=== PATIENT | female | born 1945 | race Caucasian/White ===

== ENCOUNTER 2017-12-26 17:23 | Inpatient (IN) | payer OTHER ==
[~2017-12-26] VITALS: Ht 162.6 cm; Wt 64.6 kg
--- NOTE | 2017-12-26 17:47 | ED DYSPNEA/ASTHMA COMPLAINT ---
See Addendum History of Present Illness General Chief Complaint: Dyspnea (COPD, CHF, Other) Stated Complaint: BIBA FOR ACUTE DYSPNEA Source: patient, family, old records, EMS Exam Limitations: no limitations Vital Signs & Intake/Output Vital Signs & Intake/Output Vital Signs Date Time Temp Pulse Resp B/P B/P Pulse O2 O2 Flow FiO2 Mean Ox Delivery Rate 12/26 1912 110 20 94/52 95 Nasal 2.0L Cannula 12/26 1905 97.3 120 24 84/46 12/26 1859 84/46 12/26 1752 97 Nasal 4.0L Cannula 12/26 1735 97.3 120 24 96/60 94 Nasal 2.0L Cannula 12/26 1730 97 Nasal 2.0L Cannula Allergies Coded Allergies: Penicillins (Intermediate, HIVES/RASH/ITCH 12/26/17) Triage Note: BIBA FROM WALK IN WITH C/O CHEST PAIN, MED WITH 2 BABY ASPIRIN AT WALK IN, AND 2 BABY ASPIRIN, AND 1 DUONEB ENROUTE BY EMS. PT ARRIVES TO ED AWAKE, ALERT, ORIENTED, DENIES CHEST PAIN C/O LEFT FLANK AREA PAIN. DR VAZQUEZ AT BEDSIDE FOR EVAL UPON ARRIVAL TO ROOM, EKG IN PROGRESS. Triage Nurses Notes Reviewed? yes HPI: Patient is a 72-year-old female with a long past medical history of COPD, no prior intubations, last steroid use in July 2017, who presented today to urgent care with a suspected COPD exacerbation. When she was evaluated there, she was found to have tachycardia that was concerning for atrial fibrillation versus atrial flutter. EMS was called and the patient was transported to our ED for evaluation. In route to the hospital she was given a nebulizer given her x- ray for wheezing. By the time of her arrival in the ED she was feeling subjectively improved in regards to her dyspnea but her tachycardia continued. She has no cardiac history of which she is aware, however she does note that she has not seen a physician for years. Past History Travel History Traveled to [place] past 21 day No Medical History Any Pertinent Medical History? see below for history Respiratory: COPD Surgical History Surgical History: non-contributory Psychosocial History What is your primary language Lithuanian Family History Hx Contributory? Yes Review of Systems Review of Systems Constitutional: Reports: see HPI. EENTM: Reports: no symptoms. Respiratory: Reports: see HPI, cough, short of breath, wheezing. Denies: orthopnea, stridor. Cardiovascular: Denies: chest pain, edema. GI: Reports: no symptoms. Genitourinary: Reports: no symptoms. Musculoskeletal: Reports: no symptoms. Skin: Reports: no symptoms. Neurological/Psychological: Reports: no symptoms. Hematologic/Endocrine: Reports: no symptoms. Immunologic/Allergic: Reports: no symptoms. All Other Systems: Reviewed and Negative Physical Exam Physical Exam Respiratory: wheezing Comments: HEENT: Inspection of the head reveals a normocephalic cranium with no signs of trauma. Ophtho: Extraocular muscles are intact and pupils are equal and reactive to light bilaterally with no afferent pupillary defect. The sclera are noninjected , and there is no obvious discharge. Neck: The trachea is midline, there is no obvious asymmetry or mass over the thyroid, and there is no midline cervical spine tenderness Respiratory: Diffuse expiratory wheezing in all lung sutton. No shonna hypoxia, but increased work of breathing exists with mild accessory muscle use. Cardiac: Irregular tachycardia without appreciable murmurs on auscultation. No obvious JVD. GI: Examination of the abdomen reveals no significant focal tenderness in any of the four quadrants. There is negative Frazier's sign, negative McBurney's point tenderness, negative [place] sign, negative Arevalo-Cardoza sign, and no signs of peritonitis whatsoever on percussion or deep palpation. The skin is intact with no sign of trauma or infection. : Deferred Neuro: The patient is oriented to person, place, time, and situation, with no obvious focal motor deficits. There were no sensory deficits, and the patient exhibit purposeful movement of all 4 extremities. Cranial nerves II through XII are intact, and gait is normal. Behavioral: Calm and cooperative Dermatologic: Dermatologic examination reveals no diffuse rashes or exanthems, no petechiae, no ecchymoses, and no other signs of erythema or infection. Core Measures ACS in differential dx? Yes CVA/TIA Diagnosis No Sepsis Present: No Sepsis Focused Exam Completed? No Progress Differential Diagnosis: CHF, COPD, pneumonia, pneumothorax, unstable angina Plan of Care: Orders Procedure Date/time Status Heart Healthy Diet 12/27 B Active ED Holding Orders 12/26 1921 Active Admit to inpatient 12/26 1921 Active Code Status 12/26 1921 Active TROPONIN LEVEL 05/07 1734 Complete MAGNESIUM 12/26 173 Complete COMPREHENSIVE METABOLIC PANEL 12/26 173 Complete CBC WITHOUT DIFFERENTIAL 12/26 1733 Active EKG 12/26 172 Active Current Medications Sig/Gisell Start time Last Medication Dose Stop Time Status Admin Sodium Chloride 1,000 ML BOLUS ONE 12/26 1944 AC (Normal Saline 0.9%) 12/27 2043 Azithromycin 500 MG ONCE ONE 12/26 1929 AC (Zithromax) 12/26 2028 Sodium Chloride 250 ML (Normal Saline 0.9%) Laboratory Tests 12/26/17 1753: Anion Gap 9, Estimated GFR > 60, BUN/Creatinine Ratio 33.3 H, Glucose 119 H, Calcium 8.1 L, Magnesium 1.6, Total Bilirubin 0.8, AST 24, ALT 26, Alkaline Phosphatase 82, Troponin I < 0.01, Total Protein 5.3 L, Albumin 2.9 L, Globulin 2.4, Albumin/Globulin Ratio 1.2, CBC w Diff MAN DIFF ORDERED, RBC 4.22, MCV 93.9, MCH 30.7, MCHC 32.7 L, RDW 14.4, MPV 8.1, Gran % 93.0 H, Lymphocytes % 5.5 L, Monocytes % 1.5 L, Eosinophils % 0, Basophils % 0, Absolute Granulocytes 17.4 H, Segmented Neutrophils Pending, Absolute Lymphocytes 1.0 L , Absolute Monocytes 0.3, Absolute Eosinophils 0, Absolute Basophils 0 CXR Impression: left-sided infiltrate obscuring the left heart border suggestive of consolidation Pre-Hospital EKG: A-fib versus a-flutter per EMS Initial ED EKG: Initial ECG performed at 1738 hrs., multifocal atrial tachycardia with rate of 119 bpm. AL, QT, and QTc normal. Nonspecific ST segment changes not diagnostic of steady. T wave inversions in room 3 and aVF. No priors for comparison. Comments: Patient with history of COPD presented today in respiratory distress, mild. Underlying that she had a tachycardic dysrhythmia. Arrival ECG was consistent with multifocal atrial tachycardia. Treatment of the underlying disorder will treat her dysrhythmia, so I initiated therapy with bronchodilators and steroids. We also provided fluids and obtained labs and a chest x-ray. Tachycardia improved and respiratory status did as well. Laboratory studies largely unremarkable except for leukocytosis. Chest x-ray showed left-sided pneumonia. No hospital acquired pneumonia risk factors, thus treated as community-acquired pneumonia and hospitalized for further treatment. Departure Departure Time of Disposition: 1937 Disposition: STILL A PATIENT Condition: Stable Clinical Impression Primary Impression: Community acquired pneumonia Qualifiers: Laterality: left Lung location: unspecified part of lung Qualified Code: J18.9 - Pneumonia, unspecified organism Secondary Impressions: COPD (chronic obstructive pulmonary disease) Qualifiers: COPD type: COPD with acute exacerbation Qualified Code: J44.1 - Chronic obstructive pulmonary disease with (acute) exacerbation Multifocal atrial tachycardia Departure Forms: Customer Survey General Discharge Information Admission Note Spoke With: Princess Sahni MD Documentation of Exam: Documentation of any treatments & extenuating circumstances including Concerns Regarding Discharge (functional status, medication knowledge or non-compliance, living conditions, etc.) that warrant an admission rather than observation: Patient requires full admission hospitalization given the degree of her COPD exacerbation causing likely underlying multifocal atrial tachycardia. Troponin was negative, however the patient will require extended continued therapy, as well as treatment for her pneumonia which has caused significant leukocytosis. I do not feel that outpatient therapy or observation would be appropriate or adequate in her case. Critical Care Note Critical Care Note Critical Care Time: 30-74 min
[2017-12-26 18:27] LABS: ABSOLUTE BASOPHIL COUNT 0 /CUMM (0.0-0.2); ABSOLUTE EOSINOPHIL COUNT 0 /CUMM (0.0-0.7); ABSOLUTE GRANULOCYTE CT 17.4 /CUMM (1.4-6.5); ABSOLUTE MONOCYTE COUNT 0.3 /CUMM (0.10-0.60); BASOPHIL % 0 % (0.0-2.0); EOSINOPHIL % 0 % (0-5); HEMATOCRIT 39.7 % (37-47); MEAN CORPUSCULAR HGB 30.7 PG (27.0-31.0); MEAN CORPUSCULAR HGB CONC 32.7 G/DL (33.0-37.0); MEAN CORPUSCULAR VOLUME 93.9 FL (81.0-99.0); MEAN PLATELET VOLUME 8.1 FL (7.4-10.4); PLATELET COUNT 297 /CUMM (130-400); RBC DISTRIBUTION WIDTH 14.4 % (11.5-14.5); RED BLOOD CELL CT 4.22 /CUMM (4.20-5.40); WHITE BLOOD CELL COUNT 18.7 /CUMM (4.8-10.8)
--- NOTE | 2017-12-26 18:27 | RADIOLOGY REPORT ---
EXAMINATION: XR PORTABLE CHEST CLINICAL INFORMATION: Chest pain, shortness of breath and nausea COMPARISON: 01/10/2007 TECHNIQUE: Portable frontal view of the chest was obtained. FINDINGS: There is hazy opacity of the left mid to lower lung and indistinctness of the left cardiac border. These findings are new compared to 01/10/2017. The borders of the left hilum are suboptimally defined, and there is hilar fullness. Cardiac silhouette is normal in size. No overt pleural effusion or pneumothorax. Bones appear diffusely osteopenic. IMPRESSION: There is abnormal haziness of the left lung that partially obscures the cardiac border. This suggests presence of a lingular infiltrate or atelectasis. There is mild fullness of the left hilum, as well. In an acute setting, pneumonia would be suspected. However, if the patient has more subacute or chronic symptoms, then the possibility of underlying neoplasia would need to be considered. Chest CT with i.v. contrast (and/or PA/LAT chest radiographs) may be needed for further evaluation.
[2017-12-26 22:42] VITALS: BP 90/50
[2017-12-26 23:08] VITALS: BP 112/80
--- NOTE | 2017-12-27 00:15 | History & Physical ---
Magdy JOHNS,Rohit 12/27/17 0015: General Information and HPI MD Statement: I have seen and personally examined ALEXI ALONSO and documented this H&P. The patient is a 72 year old F who presented with a patient stated chief complaint of [chest pain]. Source of Information: patient, old records Exam Limitations: no limitations History of Present Illness: Patient is a 72-year-old female with past medical history of COPD not on oxygen, current 1 pack per day smoker presenting this admission due to chest pain. Patient reports that she has had left-sided breast and flank pain that started 3 days prior to admission. Patient reports over the past week she has had back pain for which she has taken Tylenol and Advil. Patient reports this pain worsens with breathing. Rates the pain as 8 out of 10 in severity. Patient states that she went to urgent care for the pain at which point she was found to be tachycardic with concern of atrial fibrillation/flutter and possible HI and was told to come to the ED. Patient reports that over the past few days she has had a productive cough with thick green phlegm and this morning noticed a small amount of hemoptysis. Patient reports fever, chills, one day of loose watery diarrhea with 4-5 bowel movements, nausea. Patient states that she has been feeling tired and has noticed that she has had a poor appetite and has had difficulty sleeping over the past week. Patient reports shortness of breath which worsens with exertion however also occurs at rest which also started 3 days prior to admission. Patient denies any recent sick contacts, recent travel, bug bites/tick bites. Patient states that she normally goes to urgent care clinic for her healthcare. Last visit was June for a sinus infection. Patient reports her PCP is Dr. Miranda however has not seen him yet. Patient smokes one pack per day (30+ years), denies alcohol or illicit drug use. Patient states that she has an albuterol inhaler which she uses occasionally however over the past one week she has been using it every day. Past medical history: COPD, sinus infection Past surgical history: None No significant family history Allergies: Penicillin- rash/itching Patient in the ED received DuoNeb 1, dexamethasone 10 mg IV 1, ceftriaxone and azithromycin, verapamil 5 mg IV once a 1, IV normal saline bolus 1 Allergies/Medications Allergies: Coded Allergies: Penicillins (Intermediate, HIVES/RASH/ITCH 12/26/17) Home Med list Amoxicillin 500 MG CAPSULE 1 CAP PO TID Pneumonia Aspirin (Ecotrin*) 81 MG TABLET. 1 TAB PO DAILY [facility] Atorvastatin Calcium 20 MG TABLET 1 TAB PO DAILY [facility] Past History Travel History Traveled to [place] past 21 day No Medical History Blood Transfusion Hx: No Neurological: NONE EENT: NONE Cardiovascular: NONE Respiratory: COPD Gastrointestinal: NONE Hepatic: NONE Renal: NONE Musculoskeletal: NONE Psychiatric: NONE Endocrine: NONE Blood Disorders: NONE Cancer(s): NONE EMERGENCY MEDICAL DISPATCHER/Reproductive: NONE Isolation History: Standard Surgical History Surgical History: cholecystectomy Past Family/Social History Psychosocial History Where do you live? Home Services at Home: None Smoking Status: Current Everyday Smoker ETOH Use: denies use Illicit Drug Use: denies illicit drug use Review of Systems Review of Systems Constitutional: Reports: chills, fever, weakness. Cardiovascular: Reports: see HPI. Respiratory: Reports: see HPI. GI: Reports: see HPI. Genitourinary: Reports: no symptoms. Musculoskeletal: Reports: see HPI. Skin: Reports: no symptoms. Neurological/Psychological: Reports: no symptoms. Hematologic/Endocrine: Reports: no symptoms. Immunologic/Allergic: Reports: no symptoms. Exam & Diagnostic Data Last 24 Hrs of Vital Signs/I&O Vital Signs Date Time Temp Pulse Resp B/P B/P Pulse O2 O2 Flow FiO2 Mean Ox Delivery Rate 12/27 0000 Nasal 2.0L Cannula 12/26 2308 98.7 115 24 112/80 95 12/26 2242 97.9 120 20 90/50 94 Nasal 3.0L Cannula 12/26 2205 Nasal 2.0L Cannula 12/26 1912 110 20 94/52 95 Nasal 2.0L Cannula 12/26 1905 97.3 120 24 84/46 12/26 1859 84/46 12/26 1752 97 Nasal 4.0L Cannula 12/26 1735 97.3 120 24 96/60 94 Nasal 2.0L Cannula 12/26 1730 97 Nasal 2.0L Cannula Intake & Output 12/27 0800 12/27 0000 12/26 1600 Intake Total 100 Output Total Balance 100 Intake, IV 100 Patient 138 lb Weight Weight Reported by Patient Measurement Method Physical Exam General Appearance Alert, Oriented X3, Cooperative, Mild Distress Skin No Rashes Skin Temp/Moisture Exam: Warm/Dry Sepsis Skin Exam (color): Normal for Ethnicity HEENT Atraumatic, PERRLA, EOMI, Mucous Membr. moist/pink Lymphatic Cervical nl Cardiovascular Normal S1, Normal S2, No Murmurs, tachycardia Abdomen Normal Bowel Sounds, Soft, No Tenderness Neurological Normal Speech, Strength at 5/5 X4 Ext, Normal Tone, Sensation Intact, Cranial Nerves 3-12 NL Extremities No Clubbing, No Cyanosis, No Edema, Normal Pulses, No Tenderness/ Swelling Vascular Normal Pulses, Pulses Symmetrical Last 24 Hrs of Labs/Harry: Laboratory Tests 12/27/17 0200: Lactic Acid 2.3 H 12/27/17 0040: Urinalysis LIGHT H, Urine Color YEL, Urine Clarity CLEAR, Urine pH 6.0, Ur Specific [place] 1.020, Urine Protein 30 H, Urine Ketones TRACE H, Urine Nitrite NEG, Urine Bilirubin NEG, Urine Urobilinogen 2.0 H, Ur Leukocyte Esterase NEG, Ur Microscopic SEDIMENT EXAMINED, Urine RBC RARE, Urine WBC 1-3 H , Ur Epithelial Cells FEW, Urine Bacteria FEW H, Urine Hemoglobin TRACE-LYSED, Urine Glucose 500 H 12/27/17 0040: Ur Random Creatinine 62.6, Ur Random Sodium 36, Ur Random Potassium 40.5, Fraction Sodium Excret 0.4 12/26/17 1753: Anion Gap 9, Estimated GFR > 60, BUN/Creatinine Ratio 33.3 H, Glucose 119 H, Lactic Acid 2.7 H, Calcium 8.1 L, Phosphorus 3.2, Magnesium 1.6, Total Bilirubin 0.8, AST 24, ALT 26, Alkaline Phosphatase 82, Troponin I < 0.01, Pro-B -Natriuretic Pept 1750 H, Total Protein 5.3 L, Albumin 2.9 L, Globulin 2.4, Albumin/Globulin Ratio 1.2, TSH 3.220, Free T4 1.49, CBC w Diff MAN DIFF ORDERED , RBC 4.22, MCV 93.9, MCH 30.7, MCHC 32.7 L, RDW 14.4, MPV 8.1, Gran % 93.0 H, Lymphocytes % 5.5 L, Monocytes % 1.5 L, Eosinophils % 0, Basophils % 0, Absolute Granulocytes 17.4 H, Segmented Neutrophils 61, Band Neutrophils 32 H, Absolute Lymphocytes 1.0 L, Lymphocytes 6 L, Monocytes 1 L, Absolute Monocytes 0.3, Absolute Eosinophils 0, Absolute Basophils 0, Platelet Estimate VERIFIED BY SMEAR, Normocytic RBCs VERIFIED, Normochromic RBCs VERIFIED, Fld Total RBCs Counted 100 Microbiology 12/28 39 URINE ROUT: Legionella Antigen - COMP 12/28 39 URINE ROUT: Streptococcus pneumoniae Antigen (M - COMP 12/27 0005 NASOPHARYN: Influenza Virus A & B Rapid Smear - COMP 12/26 2345 LOWER RESP: Respiratory Culture - COLB 12/26 2344 LOWER RESP: Gram Stain - COLB 12/27 2019 BLOOD: Blood Culture - RECD 12/27 1999 BLOOD: Blood Culture - RECD Assessment/Plan Assessment: Patient is a 72-year-old female with past medical history of COPD not on oxygen, current 1 pack per day smoker presenting this admission due to chest pain. Patient will be admitted to telemetry for management of the followin. Sepsis secondary to community acquired pneumonia 2. Atypical chest pain rule out ACS, multifocal atrial tachycardia. 3. Lactic acidosis 4. COPD, tobacco use Plan: Admitted to telemetry with continuous telemetry monitoring Follow-up sputum cultures and blood cultures Follow-up Legionella and strep urine antigen Trend lactic acid TRC/DuoNeb treatments as needed Oxygen supplementation as needed Continue IV ceftriaxone and azithromycin Cardiology consult in a.m. Serial EKG and troponin Nicotine patch DVT prophylaxis: Lovenox Diet: Regular diet Code: DNR/DNI As Ranked By This Provider Problem List: 1. Community acquired pneumonia Qualifiers Laterality: left Lung location: unspecified part of lung Qualified Code: J18.9 - Pneumonia, unspecified organism 2. Multifocal atrial tachycardia 3. COPD (chronic obstructive pulmonary disease) Qualifiers COPD type: COPD with acute exacerbation Qualified Code: J44.1 - Chronic obstructive pulmonary disease with (acute) exacerbation Core Measures/Misc (05/08) Acute Coronary Syndrome ACS Diagnosis: No Congestive Heart Failure Congestive Heart Failure Diagnosis No Cerebrovascular Accident CVA/TIA Diagnosis: No VTE (View Protocol) VTE Risk Factors Age>40 No Mechanical VTE Prophylaxis d/t N/A MechProphylax Ordered No VTE Pharm Prophylaxis d/t NA PharmProphylax ordered Sepsis (View protocol) Sepsis Present: Yes Glenn Luque 12/27/17 0259: Resident Review Statement Resident Statement: examined this patient, discussed with international travel consultant, agreed with international travel consultant, discussed with family, reviewed EMR data (avail), discussed with nursing , discussed with case mgmt, reviewed images, amended to note Other Findings: This is a 72-year-old female with past medical history of COPD not on oxygen. She presented to the emergency department with a chief complaint of chest pain and difficulty breathing. she has had left-sided breast and flank pain that started 3 days ago and Patient reports this pain worsens with breathing. Patient reports over the past week she has had back pain for which she has taken Tylenol and Advil. she went to urgent care for the pain at which point she was found to be tachycardic with concern of possible HI and was told to come to the emergency department for further evaluation and assessment. She also report reports fever, chills, one day of loose watery diarrhea, and productive cough with thick green phlegm and this morning noticed a small amount of hemoptysis. In the emergency department she received IV azithromycin and IV ceftriaxone antiemetic from IV Decadron, also she received verapamil 5 mg IV. Patient wants hypotensive on presentation she received 1 L of normal saline bolus. In the chest x-ray showed a sign on the left lung opacification that could represent a pneumonia. Physical examination, lab and imaging as above. Problem list: -Community-acquired pneumonia -Acute chest pain -Tachycardia -Leukocytosis/lactic acidosis -Hyponatremia/hypokalemia/hypomagnesemia. Plan: -Admit patient to telemetry floor -Vitals every shift -Continue IV azithromycin and ceftriaxone -Obtain sputum culture, strep and Legionella urine antigen, rapid flu -Follow blood culture, trend lactic acid -Obtain TSH, free T4, phosphorus, lipid panel, HA1c -TRC and nebs as needed -Serial troponin and EKG -Cardiology consultation in a.m. -Obtain urine analysis and electrolytes -Replete magnesium, potassium -Patient will need a chest CAT scan as an outpatient for further evaluation. -Nicotine patch -Pain pathway -DVT prophylaxis subcutaneous Lovenox -DNI DNR Princess Sahni 12/27/17 0647: Attending MD Review Statement Attending Statement Attending MD Statement: examined this patient, discuss w/resident/PA/CONSULTING PROJECT DIRECTOR, agreed w/resident/PA/CONSULTING PROJECT DIRECTOR, reviewed EMR data (avail), reviewed images, amended to note Attending Assessment/Plan: CC: Left-sided chest pain and back pain PMH: Suspected COPD, current smoker Patient went to walk-in clinic for pain in left lateral side of chest and flank, worse with deep breathing, 7/10 in intensity, non-radiating, no aggravating or relieving factors, associated with productive cough since last 3 days. Her sputum was initially greenish yellow but then had blood-tinged this morning, endorses shortness of breath. Patient denies any fever, chills, abdominal pain, urinary frequency, burning, diarrhea, palpitations, dizziness, lightheadedness. Patient had nausea but did not have vomiting. Denies any choking episode, denies sick contacts. She has decreased appetite. Vitals: Temp pressure 97.3, pulse 120, RR 24, blood pressure 96/90 on arrival improved with 112/80 on IV hydration, saturating 97% on 3 L nasal cannula On exam: A O 3, cooperative, no acute distress, neck supple, JVD normal, no lymphadenopathy, mucosa moist, no focal neurological deficit, no dependent edema , no obvious skin rashes or inflammation CVS: S1-S2, RRR. RS: Diffuse wheezing bilaterally and crackles on left lower lobe. Abdomen: Soft, NT, ND, bowel sounds present. CXR: There is abnormal haziness of the left lung that partially obscures the cardiac border. This suggests presence of a lingular infiltrate or atelectasis. There is mild fullness of the left hilum, as well. In an acute setting, pneumonia would be suspected. However, if the patient has more subacute or chronic symptoms, then the possibility of underlying neoplasia would need to be considered. Chest CT with i.v. contrast (and/or PA/LAT chest radiographs) may be needed for further evaluation. Assessment and plan 72 year old female with possible COPD, current smoker presented in ER with productive cough, shortness of breath, left-sided chest pain. She appears in mild respiratory discomfort, wheezing on all lung sutton and crackles on left base on auscultation. She has significant leukocytosis with 32 bands. Chest x- ray confirms pneumonia. Given her extensive smoking history and left-sided chest pain ACS should be ruled out. Patient was transiently hypotensive in ER responded to fluids. Patient states that her blood pressure usually runs low. ECG shows sinus tachycardia with multiple PACs. + Community-acquired pneumonia + Possible COPD exacerbation secondary to pneumonia + Atypical left-sided Chest pain rule out ACS - Admit to telemetry - Try to wean off oxygen - IV azithromycin and ceftriaxone - Check urine strep and Legionella - Sputum culture, blood culture - Trend lactate - Continue IV hydration - Serial troponin ECGs - TRC nebulization with albuterol and ipratropium scheduled and when necessary - Mucinex scheduled twice a day - Continue rest of the home medications - Adequate pain control - DVT prophylaxis
--- NOTE | 2017-12-27 06:49 | Admission Certification ---
Admission Certification Certification Statement - As attending physician, I certify that at the time of - admission, based on clinical presentation, severity of - symptoms, need for further diagnostic testing and - therapeutic interventions, and risk of adverse outcomes - without in-hospital treatment, in my clinical assessment, - this patient requires an acute hospital stay for a minimum - of two nights or longer. I have also considered psychsocial - factors such as support system, advanced age, financial - issues, cognitive issues, and failed out-patient treatments, - past re-admission history, safety of patient, and lack of - compliance as applicable. Specific rationale supporting this admission is: Pneumonia
[2017-12-27 07:18] VITALS: BP 110/62
[2017-12-27 07:57] LABS: ABSOLUTE BASOPHIL COUNT 0 /CUMM (0.0-0.2); ABSOLUTE EOSINOPHIL COUNT 0 /CUMM (0.0-0.7); ABSOLUTE LYMPH COUNT 0.6 /CUMM (1.2-3.4); ABSOLUTE MONOCYTE COUNT 0.2 /CUMM (0.10-0.60); BASOPHIL % 0 % (0.0-2.0); EOSINOPHIL % 0 % (0-5); GRANULOCYTE % 95.6 % (42.2-75.2); MEAN CORPUSCULAR HGB 31.1 PG (27.0-31.0); MEAN CORPUSCULAR HGB CONC 33.1 G/DL (33.0-37.0); MEAN PLATELET VOLUME 8.9 FL (7.4-10.4); PLATELET COUNT 285 /CUMM (130-400); RED BLOOD CELL CT 4.04 /CUMM (4.20-5.40); WHITE BLOOD CELL COUNT 18.8 /CUMM (4.8-10.8)
--- NOTE | 2017-12-27 11:44 | PN- Att Addend ---
See Addendum Attending Addendum Attending Brief Note 72 year old female with possible COPD, Chest x-ray admitted with pneumonia. Serial cardiac enzymes negative. Blood cultures growing gram positive cocci. labs and imaging noted. PE unremarakble except few adventitious sounds on left side. 1 Community-acquired pneumonia 2 Possible COPD exacerbation secondary to pneumonia 3 Atypical left-sided Chest pain pleuritic - continue oxygen supplementation - IV azithromycin, ceftriaxone, obtain CT chest with contrast for plueritic chest pain. - Continue IV hydration - Serial troponin ECGs negative - Continue rest of the home medications - Adequate pain control - DVT prophylaxis Continue rest of care as per admitting physician Admission Lab Results I reviewed the following labs: Laboratory Tests 12/27 12/27 0614 0200 Chemistry Sodium (137 - 145 mmol/L) 139 Potassium (3.5 - 5.1 mmol/L) 4.7 Chloride (98 - 107 mmol/L) 106 Carbon Dioxide (22 - 30 mmol/L) 23 Anion Gap (5 - 16) 10 BUN (7 - 17 mg/dL) 21 H Creatinine (0.5 - 1.0 mg/dL) 0.6 Estimated GFR (>60 ml/min) > 60 BUN/Creatinine Ratio (7 - 25 %) 35.0 H Lactic Acid (0.7 - 2.1 mmol/L) 1.3 2.3 H Troponin I (< 0.11 ng/ml) < 0.01 Triglycerides (<150 mg/dL) 160 H Cholesterol (<200 MG/DL) 119 LDL Cholesterol, Calc (65 - 129 mg/dL) 63 L HDL Cholesterol (40 - 60 mg/dL) 24 L Cholesterol/HDL Ratio (0.00 - 4.23 %) 5 H Hematology CBC w Diff MAN DIFF ORDERED WBC (4.8 - 10.8 /CUMM) 18.8 H RBC (4.20 - 5.40 /CUMM) 4.04 L Hgb (12.0 - 16.0 G/DL) 12.6 Hct (37 - 47 %) 38.0 MCV (81.0 - 99.0 FL) 94.0 MCH (27.0 - 31.0 PG) 31.1 H MCHC (33.0 - 37.0 G/DL) 33.1 RDW (11.5 - 14.5 %) 14.0 Plt Count (130 - 400 /CUMM) 285 MPV (7.4 - 10.4 FL) 8.9 Gran % (42.2 - 75.2 %) 95.6 H Lymphocytes % (20.5 - 51.1 %) 3.4 L Monocytes % (1.7 - 9.3 %) 1.0 L Eosinophils % (0 - 5 %) 0 Basophils % (0.0 - 2.0 %) 0 Absolute Granulocytes (1.4 - 6.5 /CUMM) 18.0 H Segmented Neutrophils (42.2 - 75.2 %) 76 H Band Neutrophils (0.0 - 5.0 %) 21 H Absolute Lymphocytes (1.2 - 3.4 /CUMM) 0.6 L Lymphocytes (20.5 - 51.1 %) 2 L Monocytes (1.7 - 9.3 %) 1 L Absolute Monocytes (0.10 - 0.60 /CUMM) 0.2 Absolute Eosinophils (0.0 - 0.7 /CUMM) 0 Absolute Basophils (0.0 - 0.2 /CUMM) 0 Platelet Estimate (ADEQUATE) VERIFIED BY SMEAR Anisocytosis 1+ 12/27 12/27 0040 0040 Urines Urinalysis LIGHT H Urine Color (YEL,AMB,STR) YEL Urine Clarity (CLEAR) CLEAR Urine pH (5.0 - 8.0) 6.0 Ur Specific [place] (1.001 - 1.035) 1.020 Urine Protein (NEG,<30 MG/DL) 30 H Urine Ketones (NEG) TRACE H Urine Nitrite (NEG) NEG Urine Bilirubin (NEG) NEG Urine Urobilinogen (0.1 - 1.0 EU/dl) 2.0 H Ur Leukocyte Esterase (NEG) NEG Ur Microscopic SEDIMENT EXAMINED Urine RBC (0 - 5 /HPF) RARE Urine WBC (0 - 2 /HPF) 1-3 H Ur Epithelial Cells (NONE,FEW) FEW Urine Bacteria (NEG/NONE) FEW H Urine Hemoglobin (NEG) TRACE-LYSED Ur Random Creatinine (mg/dL) 62.6 Ur Random Sodium (30 - 90 mmol/L) 36 Ur Random Potassium (mmol/L) 40.5 Fraction Sodium Excret (<1% %) 0.4 Urine Glucose (N MG/DL) 500 H 12/26 1753 Chemistry Sodium (137 - 145 mmol/L) 135 L Potassium (3.5 - 5.1 mmol/L) 3.5 Chloride (98 - 107 mmol/L) 100 Carbon Dioxide (22 - 30 mmol/L) 26 Anion Gap (5 - 16) 9 BUN (7 - 17 mg/dL) 30 H Creatinine (0.5 - 1.0 mg/dL) 0.9 Estimated GFR (>60 ml/min) > 60 BUN/Creatinine Ratio (7 - 25 %) 33.3 H Glucose (65 - 99 mg/dL) 119 H Hemoglobin A1c (4.2 - 5.8 %) 6.7 H Lactic Acid (0.7 - 2.1 mmol/L) 2.7 H Calcium (8.4 - 10.2 mg/dL) 8.1 L Phosphorus (2.5 - 4.5 mg/dL) 3.2 Magnesium (1.6 - 2.3 mg/dL) 1.6 Total Bilirubin (0.2 - 1.3 mg/dL) 0.8 AST (14 - 36 U/L) 24 ALT (9 - 52 U/L) 26 Alkaline Phosphatase (<127 U/L) 82 Troponin I (< 0.11 ng/ml) < 0.01 Gcy-H-Ndatkyrjite Pept (<125 pg/mL) 1750 H Total Protein (6.3 - 8.2 g/dL) 5.3 L Albumin (3.5 - 5.0 g/dL) 2.9 L Globulin (1.9 - 4.2 gm/dL) 2.4 Albumin/Globulin Ratio (1.1 - 2.2 %) 1.2 TSH (0.270 - 4.200 uIU/mL) 3.220 Free T4 (0.78 - 2.44 ng/dL) 1.49 Hematology CBC w Diff MAN DIFF ORDERED WBC (4.8 - 10.8 /CUMM) 18.7 H RBC (4.20 - 5.40 /CUMM) 4.22 Hgb (12.0 - 16.0 G/DL) 13.0 Hct (37 - 47 %) 39.7 MCV (81.0 - 99.0 FL) 93.9 MCH (27.0 - 31.0 PG) 30.7 MCHC (33.0 - 37.0 G/DL) 32.7 L RDW (11.5 - 14.5 %) 14.4 Plt Count (130 - 400 /CUMM) 297 MPV (7.4 - 10.4 FL) 8.1 Gran % (42.2 - 75.2 %) 93.0 H Lymphocytes % (20.5 - 51.1 %) 5.5 L Monocytes % (1.7 - 9.3 %) 1.5 L Eosinophils % (0 - 5 %) 0 Basophils % (0.0 - 2.0 %) 0 Absolute Granulocytes (1.4 - 6.5 /CUMM) 17.4 H Segmented Neutrophils (42.2 - 75.2 %) 61 Band Neutrophils (0.0 - 5.0 %) 32 H Absolute Lymphocytes (1.2 - 3.4 /CUMM) 1.0 L Lymphocytes (20.5 - 51.1 %) 6 L Monocytes (1.7 - 9.3 %) 1 L Absolute Monocytes (0.10 - 0.60 /CUMM) 0.3 Absolute Eosinophils (0.0 - 0.7 /CUMM) 0 Absolute Basophils (0.0 - 0.2 /CUMM) 0 Platelet Estimate (ADEQUATE) VERIFIED BY SMEAR Normocytic RBCs VERIFIED Normochromic RBCs VERIFIED Other Body Source Fld Total RBCs Counted (%) 100 Admission Meds I reviewed the following Meds: Current Medications Sig/Gisell Start time Last Medication Dose Stop Time Status Admin Acetaminophen 650 MG Q6P PRN 12/26 2344 AC (Tylenol) Albuterol Sulfate 3 ML BID 12/27 1034 AC 12/27 (Proventil) 1036 Albuterol Sulfate 2 PUF Q4 PRN 12/26 2344 AC (Ventolin) Azithromycin 500 MG DAILY 12/27 09 AC 12/27 (Zithromax) 0802 Sodium Chloride 250 ML (Normal Saline 0.9%) Ceftriaxone Sodium 1,000 MG 1700 12/27 1700 AC (Rocephin) Enoxaparin Sodium 40 MG DAILY 12/27 09 AC 12/27 (Lovenox) 0802 Hydrocodone Bitart/ 1 TAB Q6P PRN 12/26 2344 AC 12/27 Acetaminophen 0813 (Vicodin) Ipratropium [place] 2.5 ML BID 12/27 1035 AC 12/27 (Atrovent) 1036 Magnesium Oxide 400 MG BID 12/26 2344 AC 12/27 (Mag-Ox) 12/27 210 0801 Nicotine 21 MG DAILY 12/26 2344 AC 12/27 (Nicoderm) 0130 Sodium Chloride 1,000 ML .Q10H 12/26 2345 AC 12/27 (Normal Saline 0.9%) 0034
--- NOTE | 2017-12-27 12:15 | CT SCAN REPORT ---
EXAMINATION: CT CHEST WITH CONTRAST CLINICAL INFORMATION: Shortness of breath. COPD. Presumptive diagnosis of pneumonia, pleural effusion. COMPARISON: Chest x-ray dated 12/26/2017 and 01/10/2007. TECHNIQUE: Multidetector volumetric CT imaging of the chest was obtained after the administration of 90 mL of intravenous Optiray 320. Sagittal and coronal reformations were obtained. DLP: 169.20 mGy-cm. FINDINGS: LUNGS: There is moderate centrilobular and mild paraseptal emphysema. Biapical irregular pleural-based reticular nodular opacities are seen, consistent with scarring. A few scattered nonspecific 3 to 4 mm solid noncalcified irregularly marginated nodular densities are seen in the lungs, including in the left upper lobe (series 4, image 109, 150) and left lower lobe (series 4, image 387). Corresponding to the chest x-ray findings, there is dense consolidation with air bronchograms seen in the lingula and anterior segment of the left upper lobe. No evidence of central obstructing mass or endobronchial lesion is seen. No focal lung nodule or mass. No effusion or pneumothorax. Central airways diffusely thickened and patent. Mild peribronchial thickening is seen in the right middle lobe (series 4, image 251) patchy peripheral subsegmental atelectasis is seen in the lateral segment of the right middle lobe (series 4, image 288). PLEURA: There is no pleural effusion. No pleural mass or thickening. LYMPHATIC STRUCTURES: Multiple mediastinal lymph nodes are seen, largest of which is in the prevascular space, measuring 0.8 cm in short axis. No hilar or axillary adenopathy or free fluid collection. CARDIOVASCULAR STRUCTURES: Aortic and heart size normal. Moderate atherosclerotic calcifications of the aorta and severe coronary artery calcifications. No pericardial effusion. UPPER ABDOMEN: There is some fullness at the GE junction, suggestive of a small hiatal hernia. Postcholecystectomy maninder are seen in place. Diffuse atrophy of the included portions of the pancreas is noted. Solid organs in the upper abdomen to the extent included are otherwise unremarkable. OSSEOUS STRUCTURES: Diffuse osteopenia. Moderate degenerative disc disease seen throughout the mid thoracic spine with disc space narrowing and vertebral spondylosis including prominent posterior disc osteophyte complex indenting the thecal sac and causing mild spinal stenosis at the T6-T7 level. Mild loss in height of the T8 vertebral body is seen. No suspicious focal findings. IMPRESSION: 1. Dense consolidation is seen in the lingula and anterior segment of the left upper lobe, consistent with pneumonia. No central obstructing mass or endobronchial lesion is seen. 2. Moderate emphysema with a few nonspecific scattered solid micronodules in the lungs. Given the patient's high-risk status, optional CT scan follow-up in 12 months is recommended. 3. A few reactive lymph nodes are seen in the mediastinum without suspicious adenopathy. 4. Severe coronary artery calcifications. 5. Other incidental findings include small hiatal hernia, post cholecystectomy maninder, atrophic pancreas, osteopenia and moderate degenerative disc disease in the thoracic spine.
[2017-12-27 14:37] VITALS: BP 100/60
--- NOTE | 2017-12-27 15:58 | Cons- Cardiology ---
General Information and HPI Consulting Request Date of Consult: 12/27/17 Requested By: Johanne JOHNS,Nela History of Present Illness: The patient is a pleasant 72-year-old female with history of COPD who presents with left-sided chest and back pain which has been occurring for 3 days. The pain was an 8 out of 10 in severity. She presented to urgent care where she was found to be tachycardic with concern for arrhythmia, and she was advised to go to the emergency department. EKG in the emergency department revealed multifocal atrial tachycardia and sinus rhythm. She complains of a productive cough with greenish sputum for the past few days. She notes fever and chills. No syncope. No orthopnea. No lightheadedness or dizziness. No nausea or vomiting. Allergies/Medications Allergies: Coded Allergies: Penicillins (Intermediate, HIVES/RASH/ITCH 12/26/17) Current Medications: Current Medications Sig/Gisell Start time Last Medication Dose Route Stop Time Status Admin Acetaminophen 650 MG Q6P PRN 12/26 234 AC PO Albuterol Sulfate 3 ML BID 12/27 1034 AC 12/27 INH 2059 Albuterol Sulfate 2 PUF Q4 PRN 12/26 234 AC INH Azithromycin 500 MG DAILY 12/27 0900 DC 12/27 Sodium Chloride 250 ML IV 0802 Ceftriaxone Sodium 1,000 MG 1700 12/27 1700 AC 12/27 IV 1618 Enoxaparin Sodium 40 MG DAILY 12/27 0900 AC 12/27 SC 0802 Hydrocodone Bitart/ 1 TAB Q6P PRN 12/26 2345 AC 12/27 Acetaminophen PO 2133 Ipratropium [place] 2.5 ML BID 12/27 1035 AC 12/27 INH 2059 Magnesium Oxide 400 MG BID 12/26 2345 DC 12/27 PO 12/27 2101 2132 Melatonin 5 MG AT BEDTIME 12/27 2130 AC 12/27 PO 2132 Nicotine 21 MG 2100 12/27 2200 AC TOP Nicotine 21 MG DAILY 12/26 234 TX 12/27 TOP 2134 Patient Medication 1 ED ONE ONE 12/27 1745 TX Teaching ED 12/27 1746 Potassium Chloride 40 MEQ .STK-MED ONE 12/27 0120 DC PO 12/27 0121 Sodium Chloride 1,000 ML .Q10H 12/26 2345 12/27 IV 1619 Past History Travel History Traveled to [place] past 21 day No Medical History Blood Transfusion Hx: No Neurological: NONE EENT: NONE Cardiovascular: NONE Respiratory: COPD Gastrointestinal: NONE Hepatic: NONE Renal: NONE Musculoskeletal: NONE Psychiatric: NONE Endocrine: NONE Blood Disorders: NONE Cancer(s): NONE POWER LINEWORKER/Reproductive: NONE Surgical History Surgical History: cholecystectomy Family History Relations & Conditions If Any: MOTHER Heart attack Psychosocial History Where Do You Live? Home Services at Home: None Smoking Status: Current Everyday Smoker ETOH Use: denies use Illicit Drug Use: denies illicit drug use Exam & Diagnostic Data Vital Signs and I&O Vital Signs Date Time Temp Pulse Resp B/P B/P Pulse O2 O2 Flow FiO2 Mean Ox Delivery Rate 12/27 2226 Nasal 1.0L Cannula 12/27 2207 98.4 109 18 96/64 96 12/27 2105 94 Nasal 1.0L Cannula 12/27 1437 98.1 109 18 100/60 97 Nasal 1.0L Cannula 12/27 1041 Nasal 1.0L Cannula 12/27 0800 Nasal 2.0L Cannula 12/27 0718 97.6 112 20 110/62 92 Nasal Cannula Intake & Output 12/28 0800 / 0000 / 1600 / 0800 12/27 0000 12/26 1600 Intake Total 1040 1400 720 100 Output Total Balance 1040 1400 720 100 Intake, IV 800 800 600 100 Intake, Oral 240 600 120 Number 2 Bowel Movements Patient 141 lb 138 lb Weight Weight Reported by Patient Measurement Method Physical Exam: Gen: The patient is in no acute distress HEENT: Normal nose, ears, and oropharynx. Pupils equal bilaterally. Conjunctiva normal. Neck: Supple with no JVD, no masses, and no thyromegaly Lungs: Clear to auscultation with normal respiratory effort Heart: RRR, S1, S2, no murmurs. No peripheral edema, 2+ pulses in the lower extremities bilaterally Abdomen: Soft, nontender, no masses. No hepatomegaly. No splenomegaly Extremities: No clubbing or cyanosis. Normal muscle strength in the upper and lower extremities Skin: Normal skin turgor with no skin ulcers or lesions noted. Neuro: Cranial nerves intact. Sensation intact Psych: Alert and oriented x 3 with appropriate affect Labs/Harry Results: Laboratory Tests 12/27 12/27 0614 0200 Chemistry Sodium (137 - 145 mmol/L) 139 Potassium (3.5 - 5.1 mmol/L) 4.7 Chloride (98 - 107 mmol/L) 106 Carbon Dioxide (22 - 30 mmol/L) 23 Anion Gap (5 - 16) 10 BUN (7 - 17 mg/dL) 21 H Creatinine (0.5 - 1.0 mg/dL) 0.6 Estimated GFR (>60 ml/min) > 60 BUN/Creatinine Ratio (7 - 25 %) 35.0 H Lactic Acid (0.7 - 2.1 mmol/L) 1.3 2.3 H Troponin I (< 0.11 ng/ml) < 0.01 Triglycerides (<150 mg/dL) 160 H Cholesterol (<200 MG/DL) 119 LDL Cholesterol, Calc (65 - 129 mg/dL) 63 L HDL Cholesterol (40 - 60 mg/dL) 24 L Cholesterol/HDL Ratio (0.00 - 4.23 %) 5 H Hematology CBC w Diff MAN DIFF ORDERED WBC (4.8 - 10.8 /CUMM) 18.8 H RBC (4.20 - 5.40 /CUMM) 4.04 L Hgb (12.0 - 16.0 G/DL) 12.6 Hct (37 - 47 %) 38.0 MCV (81.0 - 99.0 FL) 94.0 MCH (27.0 - 31.0 PG) 31.1 H MCHC (33.0 - 37.0 G/DL) 33.1 RDW (11.5 - 14.5 %) 14.0 Plt Count (130 - 400 /CUMM) 285 MPV (7.4 - 10.4 FL) 8.9 Gran % (42.2 - 75.2 %) 95.6 H Lymphocytes % (20.5 - 51.1 %) 3.4 L Monocytes % (1.7 - 9.3 %) 1.0 L Eosinophils % (0 - 5 %) 0 Basophils % (0.0 - 2.0 %) 0 Absolute Granulocytes (1.4 - 6.5 /CUMM) 18.0 H Segmented Neutrophils (42.2 - 75.2 %) 76 H Band Neutrophils (0.0 - 5.0 %) 21 H Absolute Lymphocytes (1.2 - 3.4 /CUMM) 0.6 L Lymphocytes (20.5 - 51.1 %) 2 L Monocytes (1.7 - 9.3 %) 1 L Absolute Monocytes (0.10 - 0.60 /CUMM) 0.2 Absolute Eosinophils (0.0 - 0.7 /CUMM) 0 Absolute Basophils (0.0 - 0.2 /CUMM) 0 Platelet Estimate (ADEQUATE) VERIFIED BY SMEAR Anisocytosis 1+ 12/27 12/27 0040 0040 Urines Urinalysis LIGHT H Urine Color (YEL,AMB,STR) YEL Urine Clarity (CLEAR) CLEAR Urine pH (5.0 - 8.0) 6.0 Ur Specific [place] (1.001 - 1.035) 1.020 Urine Protein (NEG,<30 MG/DL) 30 H Urine Ketones (NEG) TRACE H Urine Nitrite (NEG) NEG Urine Bilirubin (NEG) NEG Urine Urobilinogen (0.1 - 1.0 EU/dl) 2.0 H Ur Leukocyte Esterase (NEG) NEG Ur Microscopic SEDIMENT EXAMINED Urine RBC (0 - 5 /HPF) RARE Urine WBC (0 - 2 /HPF) 1-3 H Ur Epithelial Cells (NONE,FEW) FEW Urine Bacteria (NEG/NONE) FEW H Urine Hemoglobin (NEG) TRACE-LYSED Ur Random Creatinine (mg/dL) 62.6 Ur Random Sodium (30 - 90 mmol/L) 36 Ur Random Potassium (mmol/L) 40.5 Fraction Sodium Excret (<1% %) 0.4 Urine Glucose (N MG/DL) 500 H 12/26 1753 Chemistry Sodium (137 - 145 mmol/L) 135 L Potassium (3.5 - 5.1 mmol/L) 3.5 Chloride (98 - 107 mmol/L) 100 Carbon Dioxide (22 - 30 mmol/L) 26 Anion Gap (5 - 16) 9 BUN (7 - 17 mg/dL) 30 H Creatinine (0.5 - 1.0 mg/dL) 0.9 Estimated GFR (>60 ml/min) > 60 BUN/Creatinine Ratio (7 - 25 %) 33.3 H Glucose (65 - 99 mg/dL) 119 H Hemoglobin A1c (4.2 - 5.8 %) 6.7 H Lactic Acid (0.7 - 2.1 mmol/L) 2.7 H Calcium (8.4 - 10.2 mg/dL) 8.1 L Phosphorus (2.5 - 4.5 mg/dL) 3.2 Magnesium (1.6 - 2.3 mg/dL) 1.6 Total Bilirubin (0.2 - 1.3 mg/dL) 0.8 AST (14 - 36 U/L) 24 ALT (9 - 52 U/L) 26 Alkaline Phosphatase (<127 U/L) 82 Troponin I (< 0.11 ng/ml) < 0.01 Pye-N-Rfstivssner Pept (<125 pg/mL) 1750 H Total Protein (6.3 - 8.2 g/dL) 5.3 L Albumin (3.5 - 5.0 g/dL) 2.9 L Globulin (1.9 - 4.2 gm/dL) 2.4 Albumin/Globulin Ratio (1.1 - 2.2 %) 1.2 TSH (0.270 - 4.200 uIU/mL) 3.220 Free T4 (0.78 - 2.44 ng/dL) 1.49 Hematology CBC w Diff MAN DIFF ORDERED WBC (4.8 - 10.8 /CUMM) 18.7 H RBC (4.20 - 5.40 /CUMM) 4.22 Hgb (12.0 - 16.0 G/DL) 13.0 Hct (37 - 47 %) 39.7 MCV (81.0 - 99.0 FL) 93.9 MCH (27.0 - 31.0 PG) 30.7 MCHC (33.0 - 37.0 G/DL) 32.7 L RDW (11.5 - 14.5 %) 14.4 Plt Count (130 - 400 /CUMM) 297 MPV (7.4 - 10.4 FL) 8.1 Gran % (42.2 - 75.2 %) 93.0 H Lymphocytes % (20.5 - 51.1 %) 5.5 L Monocytes % (1.7 - 9.3 %) 1.5 L Eosinophils % (0 - 5 %) 0 Basophils % (0.0 - 2.0 %) 0 Absolute Granulocytes (1.4 - 6.5 /CUMM) 17.4 H Segmented Neutrophils (42.2 - 75.2 %) 61 Band Neutrophils (0.0 - 5.0 %) 32 H Absolute Lymphocytes (1.2 - 3.4 /CUMM) 1.0 L Lymphocytes (20.5 - 51.1 %) 6 L Monocytes (1.7 - 9.3 %) 1 L Absolute Monocytes (0.10 - 0.60 /CUMM) 0.3 Absolute Eosinophils (0.0 - 0.7 /CUMM) 0 Absolute Basophils (0.0 - 0.2 /CUMM) 0 Platelet Estimate (ADEQUATE) VERIFIED BY SMEAR Normocytic RBCs VERIFIED Normochromic RBCs VERIFIED Other Body Source Fld Total RBCs Counted (%) 100 Diagnostic Data EKG Results EKG tracings independently reviewed, and reveals multifocal atrial tachycardia at 118 Other Results CXR: There is abnormal haziness of the left lung that partially obscures the cardiac border. This suggests presence of a lingular infiltrate or atelectasis. There is mild fullness of the left hilum, as well. In an acute setting, pneumonia would be suspected. However, if the patient has more subacute or chronic symptoms, then the possibility of underlying neoplasia would need to be considered. Chest CT with i.v. contrast (and/or PA/LAT chest radiographs) may be needed for further evaluation. CT Chest: 1. Dense consolidation is seen in the lingula and anterior segment of the left upper lobe, consistent with pneumonia. No central obstructing mass or endobronchial lesion is seen. 2. Moderate emphysema with a few nonspecific scattered solid micronodules in the lungs. Given the patient's high-risk status, optional CT scan follow-up in 12 months is recommended. 3. A few reactive lymph nodes are seen in the mediastinum without suspicious adenopathy. 4. Severe coronary artery calcifications. 5. Other incidental findings include small hiatal hernia, post cholecystectomy maninder, atrophic pancreas, osteopenia and moderate degenerative disc disease in the thoracic spine. Assessment/Plan Assessment/Plan Assessment: 1. Community acquired pneumonia 2. Sinus tachycardia and multifocal atrial tachycardia 3. Chest pain, atypical Plan: Monitor on telemetry for further arrhythmias Check serial troponin Echocardiogram Treatment of pneumonia as per the medical service Stress testing as outpatient if myocardial infarction is ruled out Consult Acknowledgment - Thank you for your consult request.
[2017-12-27 22:07] VITALS: BP 96/64
[2017-12-28 07:21] VITALS: BP 102/64
[2017-12-28 08:11] LABS: ABSOLUTE BASOPHIL COUNT 0 /CUMM (0.0-0.2); ABSOLUTE EOSINOPHIL COUNT 0 /CUMM (0.0-0.7); ABSOLUTE GRANULOCYTE CT 15.9 /CUMM (1.4-6.5); ABSOLUTE LYMPH COUNT 1.3 /CUMM (1.2-3.4); ABSOLUTE MONOCYTE COUNT 0.6 /CUMM (0.10-0.60); BASOPHIL % 0 % (0.0-2.0); EOSINOPHIL % 0 % (0-5); GRANULOCYTE % 89.3 % (42.2-75.2); HEMATOCRIT 38.6 % (37-47); MEAN CORPUSCULAR HGB 30.6 PG (27.0-31.0); MEAN CORPUSCULAR HGB CONC 32.6 G/DL (33.0-37.0); MEAN CORPUSCULAR VOLUME 93.8 FL (81.0-99.0); MEAN PLATELET VOLUME 8.7 FL (7.4-10.4); PLATELET COUNT 341 /CUMM (130-400); RBC DISTRIBUTION WIDTH 14.7 % (11.5-14.5); RED BLOOD CELL CT 4.12 /CUMM (4.20-5.40); WHITE BLOOD CELL COUNT 17.8 /CUMM (4.8-10.8)
--- NOTE | 2017-12-28 10:25 | PN- Housestaff ---
Marcus JOHNS,[facility] 12/28/17 1025: Subjective Follow-up For: Pneumonia Chest Pain Tele-Events Since Last Visit: NSR with heart rate in 90s with occasional runs of Sinus tach Subjective: Feels better. Gets short of breath while walking around. Overall feels improved though. No more episodes of chest pain. Review of Systems Constitutional: Reports: no symptoms. Cardiovascular: Reports: peripheral edema. Objective Last 24 Hrs of Vital Signs/I&O Vital Signs Date Time Temp Pulse Resp B/P B/P Pulse O2 O2 Flow FiO2 Mean Ox Delivery Rate 12/28 0806 93 Nasal 1.0L Cannula 12/28 08 Nasal 1.0L Cannula 12/28 0721 97.7 100 18 102/64 94 Nasal Cannula 12/27 2227 Nasal 1.0L Cannula 12/27 2207 98.4 109 18 96/64 96 12/27 2105 94 Nasal 1.0L Cannula 12/27 1437 98.1 109 18 100/60 97 Nasal 1.0L Cannula Intake & Output 12/28 1600 12/28 0800 12/28 0000 Intake Total 1000 1040 Output Total Balance 1000 1040 Intake, IV 800 800 Intake, Oral 200 240 Patient 141 lb Weight Physical Exam General Appearance: Alert, Oriented X3, Cooperative, Mild Distress Skin: No Rashes, No Breakdown Skin Temp/Moisture Exam: Warm/Dry Sepsis Skin Exam (color): Normal for Ethnicity HEENT: Atraumatic Cardiovascular: Normal S1, Normal S2, No Murmurs Lungs: Normal Air Movement, decreased air entry at RLL Abdomen: Soft, No Tenderness Neurological: Normal Speech Extremities: bilateral 1+ pitting edema Assessment/Plan Assessment: 72-year-old female with past medical history of COPD not on oxygen, current 1 pack per day smoker presenting this admission due to chest pain. Assessment: 1. Chest Pain 2. Community Acquired Pneumonia 3. Emphysema 4. Sinus Tachycardia Plan: * Continue oxygen supplementation to maintain target oxygen saturations >92%. Currently on 2L. * Continue Ceftriaxone 1g daily. Can likely be switched to an oral agent tomorrow. * Her CT chest yesterday showed left upper and lingula infiltrate highly suggestive of pneumonia. Moderate emphysema with a few nonspecific scattered solid micronodules in the lungs. * She will need a repeat CT scan in 12 months. * Her chest pain has subsided. She will need outpatient cardiology follow up with a possible stress test. She does have severe coronary calcifications. * Echocardiogram - pending * Her sinus tachycardia is likely due to her underlying infection. * She has lower extremity edema. Will start her on Lasix 20mg daily for now and see how she responds. * Will continue NS @ 75ml/hr for now. Her blood pressure is also low. * Diet: Heart Healthy * DVT Prophylaxis: SC Lovenox * Code Status: DNR/DNI Problem List: 1. Community acquired pneumonia Pain Ratin Pain Location: none Pain Goal: Remain pain free Pain Plan: none Tomorrow's Labs & Rationales: CBC, BEP Nela Whiting 12/28/17 1130: Attending MD Review Statement Attending Statement Attending MD Statement: examined this patient, discuss w/resident/PA/[employer] PLANT DISPATCHER, agreed w/resident/PA/[employer] DISPATCHER, discussed with family, reviewed EMR data (avail), discussed with nursing, discussed with case mgmt, reviewed images, amended to note Attending Assessment/Plan: Patent seen/examined bedsdie. Patient c/o shortness of breath, use of accessory msucles+. afebriel, spo2 93% on 2l nc. WBC 17.8 with improvement in bandemia. She had sepsis initally at [facility]ms[facility] which is improved now. Patient is ex smoker with emphysematous changes on CT chest. She is on iv anitbitoics for Communtiy acquired penumonia and gram positive cocci bactermia. Follow up cultures and titrte antibitoics. continue with bronchodilators and oxygen supplementation. Consider steroid use if no improvement or wheezes occur.
--- NOTE | 2017-12-28 12:45 | PN- Cardiology ---
Subjective Subjective: The patient is doing somewhat better today although she continues to feel somewhat short of breath and weak. No new cardiac symptoms. The patient complains somewhat of her lower extremity edema Objective Vital Signs and I&Os Vital Signs Date Time Temp Pulse Resp B/P B/P Pulse O2 O2 Flow FiO2 Mean Ox Delivery Rate 12/28 905 93 Nasal 1.0L Cannula 12/28 08 Nasal 1.0L Cannula 12/28 720 97.7 100 18 102/64 94 Nasal Cannula 12/27 2227 Nasal 1.0L Cannula 12/27 2207 98.4 109 18 96/64 96 12/27 2105 94 Nasal 1.0L Cannula 12/27 1437 98.1 109 18 100/60 97 Nasal 1.0L Cannula Intake & Output 12/28 1600 12/28 0000 12/27 1600 12/27 0000 Intake Total 1000 1040 1400 720 100 Output Total Balance 1000 1040 1400 720 100 Intake, IV 800 800 800 600 100 Intake, Oral 200 240 600 120 Number 2 Bowel Movements Patient 141 lb 138 lb Weight Weight Reported by Patient Measurement Method Physical Exam: General Appearance: well developed/nourished, alert, awake, oriented Head: normal HEENT: Normal Neck: supple, JVP normal, carotid upstrokes normal bilaterally, no masses or thyromegaly Respiratory: chest non-tender, bilateral rhonchi greater on the left Cardiovascular: regular rate/rhythm, normal S1, S2, 1/6 systolic murmur Abdomen: normal bowel sounds, soft, non-tender Extremities: normal inspection, 1+ bilateral edema Vascular: Pulses are 2+ and equal bilaterally Neurologic: Grossly normal/nonfocal Current Medications: Current Medications Sig/Gisell Start time Last Medication Dose Route Stop Time Status Admin Acetaminophen 650 MG Q6P PRN 12/26 2344 AC PO Albuterol Sulfate 3 ML BID 12/27 1034 AC 12/28 INH 0906 Albuterol Sulfate 2 PUF Q4 PRN 12/26 2344 AC INH Azithromycin 500 MG DAILY 12/27 899 DC 12/27 Sodium Chloride 250 ML IV 0802 Ceftriaxone Sodium 1,000 MG 1700 12/27 1700 AC 12/27 IV 1618 Enoxaparin Sodium 40 MG DAILY 12/27 899 AC 12/28 SC 0958 Furosemide 20 MG DAILY 12/28 1028 AC 05/09 PO 1040 Hydrocodone Bitart/ 1 TAB Q6P PRN 12/26 2345 AC 12/28 Acetaminophen PO 0557 Ipratropium [place] 2.5 ML BID 12/27 1035 AC 12/28 INH 0906 Magnesium Oxide 400 MG BID 12/26 2344 DC 12/27 PO 12/27 2101 2132 Melatonin 5 MG AT BEDTIME 12/27 213 AC 12/27 PO 213 Nicotine 21 MG 2100 12/27 2199 TOP Nicotine 21 MG DAILY 12/26 2344 ME 12/27 TOP 2134 Patient Medication 1 ED ONE ONE 12/27 1745 ME Teaching ED 12/27 1746 Sodium Chloride 1,000 ML .[id number] 12/26 2344 AC 12/28 IV 0958 Results Last 48 Hrs of Labs/Mics: Laboratory Tests 12/28/17 0611: CBC w Diff MAN DIFF ORDERED, RBC 4.12 L, MCV 93.8, MCH 30.6, MCHC 32.6 L, RDW 14.7 H, MPV 8.7, Gran % 89.3 H, Lymphocytes % 7.4 L, Monocytes % 3.3, Eosinophils % 0, Basophils % 0, Absolute Granulocytes 15.9 H, Segmented Neutrophils 83 H, Band Neutrophils 7 H, Absolute Lymphocytes 1.3, Lymphocytes 7 L, Monocytes 3, Absolute Monocytes 0.6, Absolute Eosinophils 0, Absolute Basophils 0, Platelet Estimate VERIFIED BY SMEAR, Normocytic RBCs VERIFIED, Normochromic RBCs VERIFIED 12/27/17 0614: Anion Gap 10, Estimated GFR > 60, BUN/Creatinine Ratio 35.0 H, Lactic Acid 1.3, Troponin I < 0.01, Triglycerides 160 H, Cholesterol 119, LDL Cholesterol, Calc 63 L, HDL Cholesterol 24 L, Cholesterol/HDL Ratio 5 H, CBC w Diff MAN DIFF ORDERED, RBC 4.04 L, MCV 94.0, MCH 31.1 H, MCHC 33.1, RDW 14.0, MPV 8.9, Gran % 95.6 H, Lymphocytes % 3.4 L, Monocytes % 1.0 L, Eosinophils % 0, Basophils % 0, Absolute Granulocytes 18.0 H, Segmented Neutrophils 76 H, Band Neutrophils 21 H, Absolute Lymphocytes 0.6 L, Lymphocytes 2 L, Monocytes 1 L , Absolute Monocytes 0.2, Absolute Eosinophils 0, Absolute Basophils 0, Platelet Estimate VERIFIED BY SMEAR, Anisocytosis 1+ 12/27/17 0200: Lactic Acid 2.3 H 12/27/17 004: Urinalysis LIGHT H, Urine Color YEL, Urine Clarity CLEAR, Urine pH 6.0, Ur Specific [place] 1.020, Urine Protein 30 H, Urine Ketones TRACE H, Urine Nitrite NEG, Urine Bilirubin NEG, Urine Urobilinogen 2.0 H, Ur Leukocyte Esterase NEG, Ur Microscopic SEDIMENT EXAMINED, Urine RBC RARE, Urine WBC 1-3 H , Ur Epithelial Cells FEW, Urine Bacteria FEW H, Urine Hemoglobin TRACE-LYSED, Urine Glucose 500 H 12/27/17 0040: Ur Random Creatinine 62.6, Ur Random Sodium 36, Ur Random Potassium 40.5, Fraction Sodium Excret 0.4 12/26/17 1753: Anion Gap 9, Estimated GFR > 60, BUN/Creatinine Ratio 33.3 H, Glucose 119 H, Hemoglobin A1c 6.7 H, Lactic Acid 2.7 H, Calcium 8.1 L, Phosphorus 3.2, Magnesium 1.6, Total Bilirubin 0.8, AST 24, ALT 26, Alkaline Phosphatase 82, Troponin I < 0.01, Yaa-S-Wipwvsxzjfs Pept 1750 H, Total Protein 5.3 L, Albumin 2.9 L, Globulin 2.4, Albumin/Globulin Ratio 1.2, TSH 3.220, Free T4 1.49, CBC w Diff MAN DIFF ORDERED, RBC 4.22, MCV 93.9, MCH 30.7, MCHC 32.7 L, RDW 14.4, MPV 8.1, Gran % 93.0 H, Lymphocytes % 5.5 L, Monocytes % 1.5 L, Eosinophils % 0, Basophils % 0, Absolute Granulocytes 17.4 H, Segmented Neutrophils 61, Band Neutrophils 32 H, Absolute Lymphocytes 1.0 L, Lymphocytes 6 L, Monocytes 1 L , Absolute Monocytes 0.3, Absolute Eosinophils 0, Absolute Basophils 0, Platelet Estimate VERIFIED BY SMEAR, Normocytic RBCs VERIFIED, Normochromic RBCs VERIFIED , Fld Total RBCs Counted 100 Microbiology 12/28 39 URINE ROUT: Legionella Antigen - COMP 12/28 39 URINE ROUT: Streptococcus pneumoniae Antigen (M - COMP 12/27 0005 NASOPHARYN: Influenza Virus A & B Rapid Smear - COMP Assessment/Plan Assessment/Plan Assessment: 1. Chest pain syndrome 2. Sinus tachycardia with atrial ectopy and episodes of MAT 3. Community-acquired pneumonia with infiltrate, left upper lobe and lingula 4. Underlying COPD/emphysema 5. Coronary artery disease with severe coronary calcification noted on chest CT Recommendations: -At the moment, the patient stable from a cardiac standpoint -Continue current management as per the medical team -Echocardiogram pending -Eventually, in view of her severe coronary calcification, the patient will need further evaluation as outpatient with Dr. Cid. In addition, aggressive risk factor modification is appropriate. -Continue to monitor on telemetry for now. Continue telemetry? Yes
[2017-12-28 14:32] VITALS: BP 96/66
[2017-12-28 22:26] VITALS: BP 102/64
[2017-12-29 04:34] VITALS: BP 124/70
--- NOTE | 2017-12-29 05:12 | RADIOLOGY REPORT ---
EXAMINATION: XR PORTABLE CHEST CLINICAL INFORMATION: Increasing shortness of breath with decreasing oxygen saturation COMPARISON: Multiple priors, most recently CT performed 12/27/2017. TECHNIQUE: Portable frontal view of the chest was obtained. FINDINGS: The lungs are well expanded. There is persistent hazy opacity at the left mid to lower lung, likely corresponding to the consolidation in the left upper lobe seen on prior CT. No pneumothorax. There is blunting at the right costophrenic angle suggestive of a small pleural effusion. The cardiomediastinal silhouette is unchanged, with a calcified aorta. IMPRESSION: Similar appearance of left upper lobe consolidation. There is now blunting of the right costophrenic angle suggesting a small pleural effusion.
[2017-12-29 07:01] VITALS: BP 132/68
--- NOTE | 2017-12-29 07:01 | PN- Housestaff ---
Marcus JOHNS,[facility] 12/29/17 0700: Subjective Follow-up For: Pneumonia Chest Pain Tele-Events Since Last Visit: NSR/ST with HR 80-110. No overnight events. Subjective: Stable with increasing oxygen requirements, now on 3L. Around 4am this morning she woke up with shortness of breath. Her O2 levels were increased at that time. States she had to go repeated to urinate last night after the Lasix yesterday. No complaints of dysuria. No other complaints. Review of Systems Constitutional: Reports: no symptoms. Objective Last 24 Hrs of Vital Signs/I&O Vital Signs Date Time Temp Pulse Resp B/P B/P Pulse O2 O2 Flow FiO2 Mean Ox Delivery Rate 12/29 0701 98.7 104 24 132/68 94 Nasal Cannula 12/29 0455 92 Nasal 3.0L Cannula 12/29 0434 98.7 104 24 124/70 92 Nasal 3.0L Cannula 12/29 0400 98.3 113 28 92 Nasal 3.0L Cannula 12/28 2241 Nasal 2.0L Cannula 12/28 2226 98.8 98 22 102/64 93 Nasal 2.0L Cannula 12/28 2119 93 Nasal 2.0L Cannula 12/28 1432 98.1 100 20 96/66 94 Nasal 2.0L Cannula 12/28 0906 93 Nasal 1.0L Cannula 12/28 0800 Nasal 1.0L Cannula 12/28 0721 97.7 100 18 102/64 94 Nasal Cannula Intake & Output 12/29 0800 05 0000 12/28 1600 Intake Total 046 753 3388 Output Total 700 1900 Balance -235 905 -505 Intake, IV 225 545 675 Intake, Oral 240 360 720 Number 0 Bowel Movements Output, Urine 700 1900 Patient 144 lb Weight Physical Exam General Appearance: Alert, Oriented X3, Cooperative, Mild Distress Skin: No Rashes, No Breakdown Skin Temp/Moisture Exam: Warm/Dry Sepsis Skin Exam (color): Normal for Ethnicity HEENT: Atraumatic Cardiovascular: Normal S1, Normal S2, No Murmurs Lungs: Normal Air Movement, decreased air entry at RLL Abdomen: Soft, No Tenderness Neurological: Normal Speech Extremities: 1+ pitting edema of lower extremities Last 24 Hrs of Lab/Harry Results Last 24 Hrs of Labs/Mics: Laboratory Tests 12/29/17 0644: Anion Gap 10, Estimated GFR > 60, BUN/Creatinine Ratio 32.0 H, CBC w Diff NO MAN DIFF REQ, RBC 4.15 L, MCV 94.1, MCH 30.6, MCHC 32.6 L, RDW 15.2 H, MPV 8.5, Gran % 72.4, Lymphocytes % 19.2 L, Monocytes % 7.9, Eosinophils % 0.2, Basophils % 0.3, Absolute Granulocytes 8.5 H, Absolute Lymphocytes 2.3, Absolute Monocytes 0.9 H, Absolute Eosinophils 0, Absolute Basophils 0 Assessment/Plan Assessment: 72-year-old female with past medical history of COPD not on oxygen, current 1 pack per day smoker presenting this admission due to chest pain. Assessment: 1. Chest Pain 2. Community Acquired Pneumonia 3. Emphysema 4. Sinus Tachycardia Plan: * Continue oxygen supplementation to maintain target oxygen saturations >92%. Currently on 3L. Will taper as tolerated. * Continue Ceftriaxone 1g daily. * Await Culture C&S. * Repeat CXR this morning showed no improvement of her infiltrates and revealed a small R sided pleural effusion. * Her CT chest showed left upper and lingula infiltrate highly suggestive of pneumonia. Moderate emphysema with a few nonspecific scattered solid micronodules in the lungs. * She will need a repeat CT scan in 12 months. * She will need outpatient cardiology follow up with a possible stress test. She does have severe coronary calcifications. * Echocardiogram - pending * She has lower extremity edema which is improved from yesterday. Will discontinue her Lasix for now. * D/C IV fluids. Blood pressure is improved since yesterday. * Diet: Regular * DVT Prophylaxis: SC Lovenox * Code Status: DNR/DNI Problem List: 1. COPD (chronic obstructive pulmonary disease) Pain Ratin Pain Location: none Pain Goal: Remain pain free Pain Plan: none Tomorrow's Labs & Rationales: CBC, BEP Nela Whiting 12/29/17 1047: Attending MD Review Statement Attending Statement Attending MD Statement: examined this patient, discuss w/resident/PA/REPAIR COIL WINDER, agreed w/resident/PA/REPAIR COIL WINDER, discussed with family, reviewed EMR data (avail), discussed with nursing, discussed with case mgmt, reviewed images, amended to note Attending Assessment/Plan: Patent seen/examined bedsdie. Patient with overall slow improvement. Use of accessory muscles+. afebrile, spo2 94% on 2l nc. WBC 11.8 with improvement in bandemia. She had sepsis initally at admsison which is improved now. Patient is ex smoker with emphysematous changes on CT chest. Possiblity if underlying COPD. She is on iv anitbitoics for Communtiy acquired penumonia and gram positive cocci bactermia with left sided consolidation. Follow up cultures and titrte antibitoics. continue with bronchodilators and oxygen supplementation. atypical chest pain: ECHO pending , chest xray with small rt pleural effusion Discharge planning based on her clinical condition.
[2017-12-29 07:39] LABS: ABSOLUTE BASOPHIL COUNT 0 /CUMM (0.0-0.2); ABSOLUTE EOSINOPHIL COUNT 0 /CUMM (0.0-0.7); ABSOLUTE GRANULOCYTE CT 8.5 /CUMM (1.4-6.5); ABSOLUTE LYMPH COUNT 2.3 /CUMM (1.2-3.4); ABSOLUTE MONOCYTE COUNT 0.9 /CUMM (0.10-0.60); BASOPHIL % 0.3 % (0.0-2.0); EOSINOPHIL % 0.2 % (0-5); GRANULOCYTE % 72.4 % (42.2-75.2); HEMATOCRIT 39.1 % (37-47); MEAN CORPUSCULAR HGB 30.6 PG (27.0-31.0); MEAN CORPUSCULAR HGB CONC 32.6 G/DL (33.0-37.0); MEAN CORPUSCULAR VOLUME 94.1 FL (81.0-99.0); MEAN PLATELET VOLUME 8.5 FL (7.4-10.4); PLATELET COUNT 311 /CUMM (130-400); RBC DISTRIBUTION WIDTH 15.2 % (11.5-14.5); RED BLOOD CELL CT 4.15 /CUMM (4.20-5.40); WHITE BLOOD CELL COUNT 11.8 /CUMM (4.8-10.8)
--- NOTE | 2017-12-29 08:33 | Patient Discharge Instructions ---
Discharge Instructions General Discharge Information You were seen/treated for: Pneumonia Special Instructions: Please follow up with your PCP and batch attendant within one week of discharge. Please have a repeat CT scan in 12 months for reassessment of pulmonary nodules. Diet Continue normal diet: Yes Recommended Diet: Heart Healthy Activity Full Activity/No Limits: Yes Acute Coronary Syndrome Inclusion Criteria At DC or during hospital stay patient has or had the following: ACS DIAGNOSIS No Discharge Core Measures Meds if any: Prescribed or Continued at Discharge Meds if any: NOT Prescribed or Continued at Discharge Congestive Heart Failure Inclusion Criteria At DC or during hospital stay patient has or had the following: CHF DIAGNOSIS No Discharge Core Measures Meds if any: Prescribed or Continued at Discharge Meds if any: NOT Prescribed or Continued at Discharge Cerebrovascular accident Inclusion Criteria At DC or during hospital stay patient has or had the following: CVA/TIA Diagnosis No Discharge Core Measures Meds if any: Prescribed or Continued at Discharge Meds if any: NOT Prescribed or Continued at Discharge Venous thromboembolism Inclusion Criteria VTE Diagnosis No VTE Type NONE VTE Confirmed by (Test) NONE Discharge Core Measures - Per Current guidelines, there needs to be overlap - treatment for the first 5 days of Warfarin therapy. - If discharged on Warfarin prior to 5 days of - overlap therapy, the patient will need to be - assessed for post discharge needs including - *Post discharge parental anticoagulation - *Warfarin and/or parental anticoagulation education - *Follow up date to check INR post discharge At least 5 days overlap therapy as Inpatient No Meds if any: Prescribed or Continued at Discharge Note: Overlap Therapy is Warfarin and Anticoagulant Meds if any: NOT Prescribed or Continued at Discharge
--- NOTE | 2017-12-29 14:10 | ECHOCARDIOGRAM REPORT ---
ALEXI ALONSO Age: 72 : 1945 Gender: F Exam Date: 12/28/2017 16:58 Exam Location: Echo Lab Ht (in): Wt (lb): BSA: BP: / Ordering Physician: Uli Velazquez MD Referring Physician: Liliana Gonsalez MD Technologist: Radha Mcclain RDCS Room Number: Indications: CHEST PAIN Rhythm: Sinus Technical Quality: Good FINDINGS Left Ventricle Mild concentric left ventricular hypertrophy. Mild left ventricular dilatation. Abnormal relaxation filling pattern of the left ventricle for age (stage 1 diastolic dysfunction). Moderately reduced LV systolic function with global hypinesis. LVEF estimated at 40%. Right Ventricle Normal right ventricular size and function. Right Atrium Normal right atrial size. Left Atrium Normal left atrial size. Mitral Valve Mitral valve thickened. Mild mitral regurgitation. Aortic Valve Diffuse thickening (sclerosis) of the aortic valve cusps without reduced excursion. No aortic stenosis. No aortic regurgitation. Tricuspid Valve Tricuspid valve not well visualized, grossly normal. Pulmonic Valve Pulmonic valve not well visualized, grossly normal. Pericardium No pericardial effusion. Great Vessels Normal size aortic root. CONCLUSIONS Mild concentric left ventricular hypertrophy. Mild left ventricular dilatation. Abnormal relaxation filling pattern of the left ventricle for age (stage 1 diastolic dysfunction). Mild mitral regurgitation. Moderately reduced LV systolic function with global hypinesis. LVEF estimated at 40%. Marcial Cid M.D. (Electronically Signed) Final Date: 29 Dec 2017 14:09 MEASUREMENTS (Male / Female) Normal Values 2D ECHO LV Diastolic Diameter PLAX 5.4 cm 4.2 - 5.9 / 3.9 - 5.3 cm LV Systolic Diameter PLAX 4.3 cm 2.1 - 4.0 cm LV Fractional Shortening PLAX 19.8 % 25 - 46 % LV Ejection Fraction 2D Teich 40.2 % IVS Diastolic Thickness 1.2 cm LVPW Diastolic Thickness 1.2 cm LV Relative Wall Thickness 0.4 RV Internal Dim ED PLAX 2.4 cm 1.9 - 3.8 cm LVOT Diameter 1.8 cm Aortic Root Diameter 2.6 cm LA Systolic Diameter LX 3.2 cm 3.0 - 4.0 / 2.7 - 3.8 cm LA Volume 22.0 cm 18 - 58 / 22 - 52 cm DOPPLER AV Peak Velocity 117.0 cm/s AV Peak Gradient 5.5 mmHg AV Mean Velocity 80.3 cm/s AV Mean Gradient 3.0 mmHg AV Velocity Time Integral 28.5 cm LVOT Peak Velocity 81.2 cm/s LVOT Peak Gradient 2.6 mmHg LVOT Mean Velocity 62.0 cm/s LVOT Mean Gradient 2.0 mmHg LVOT Velocity Time Integral 18.9 cm LVOT Stroke Volume 48.1 cm AV Area Cont Eq vti 1.7 cm AV Area Cont Eq pk 1.8 cm MV Peak Velocity 119.0 cm/s MV Peak Gradient 5.7 mmHg MV Mean Velocity 74.1 cm/s MV Mean Gradient 3.0 mmHg Mitral E Point Velocity 93.3 cm/s Mitral A Point Velocity 120.0 cm/s Mitral E to A Ratio 0.8 MV PHT Velocity 111.0 cm/s MV Deceleration [place] 416.5 cm/s MV Pressure Half Time 80.0 ms MV Area PHT 2.8 cm PV Peak Velocity 66.2 cm/s PV Peak Gradient 1.8 mmHg PV Mean Velocity 49.7 cm/s PV Mean Gradient 1.0 mmHg PV Velocity Time Integral 11.5 cm LV E' Lateral Velocity 7.0 cm/s Mitral E to LV E' Lateral Ratio 13.3 LV E' Septal Velocity 3.4 cm/s Mitral E to LV E' Septal Ratio 27.4
[2017-12-29 14:21] VITALS: BP 130/60
--- NOTE | 2017-12-29 15:40 | PN- Cardiology ---
Subjective Subjective: The patient seems to be doing slightly better today respiratory mares. She tried Lasix yesterday and was unhappy with the way it made her feel. Her heart rate at the moment is slightly elevated at 110-120. This appears to be sinus tachycardia with ectopy. She did have a recent nebulizer treatment. She denies any other cardiac symptoms. Objective Vital Signs and I&Os Vital Signs Date Time Temp Pulse Resp B/P B/P Pulse O2 O2 Flow FiO2 Mean Ox Delivery Rate 12/29 1421 98.8 103 22 130/60 92 Nasal 3.0L Cannula 12/29 1154 92 Nasal 3.0L Cannula 12/29 0800 94 Nasal 3.0L Cannula 12/29 0701 98.7 104 24 132/68 94 Nasal Cannula 12/29 0455 92 Nasal 3.0L Cannula 12/29 0434 98.7 104 24 124/70 92 Nasal 3.0L Cannula 12/29 0400 98.3 113 28 92 Nasal 3.0L Cannula 12/28 2241 Nasal 2.0L Cannula 12/28 2226 98.8 98 22 102/64 93 Nasal 2.0L Cannula 12/28 2119 93 Nasal 2.0L Cannula Intake & Output 12/29 1600 12/29 0800 12/29 0000 12/28 1600 12/28 0800 12/28 0000 Intake Total 238 261 1368 1000 1040 Output Total 700 1900 Balance -235 905 -505 1000 1040 Intake, IV 225 545 675 800 800 Intake, Oral 240 360 720 200 240 Number 0 Bowel Movements Output, Urine 700 1900 Patient 144 lb 141 lb Weight Current Medications: Current Medications Sig/Gisell Start time Last Medication Dose Route Stop Time Status Admin Acetaminophen 650 MG Q6P PRN 12/26 2345 AC PO Albuterol Sulfate 3 ML BID 12/27 1034 AC 12/29 INH 1151 Albuterol Sulfate 2 PUF Q4 PRN 12/26 2345 AC 12/29 INH 0407 Ceftriaxone Sodium 1,000 MG 1700 / 1700 AC 12/28 IV 1556 Enoxaparin Sodium 40 MG DAILY 12/27 09 AC 12/29 SC 0834 Furosemide 20 MG DAILY 12/28 1028 DC 12/28 PO 1040 Hydrocodone Bitart/ 1 TAB Q6P PRN 12/26 2345 AC 12/29 Acetaminophen PO 0835 Ipratropium [place] 2.5 ML BID 12/27 1035 AC 12/29 INH 1151 Melatonin 5 MG AT BEDTIME 12/27 2130 AC 12/28 PO 2210 Nicotine 21 MG 2100 12/27 2200 AC 12/28 TOP 2210 Sodium Chloride 1,000 ML .[id number] 12/26 2345 DC 12/28 IV 0958 Results Last 48 Hrs of Labs/Mics: Laboratory Tests 12/29/17 0644: Anion Gap 10, Estimated GFR > 60, BUN/Creatinine Ratio 32.0 H, Pro-B- Natriuretic Pept 5950 H, CBC w Diff NO MAN DIFF REQ, RBC 4.15 L, MCV 94.1, MCH 30.6, MCHC 32.6 L, RDW 15.2 H, MPV 8.5, Gran % 72.4, Lymphocytes % 19.2 L, Monocytes % 7.9, Eosinophils % 0.2, Basophils % 0.3, Absolute Granulocytes 8.5 H, Absolute Lymphocytes 2.3, Absolute Monocytes 0.9 H, Absolute Eosinophils 0, Absolute Basophils 0 12/28/17 0611: CBC w Diff MAN DIFF ORDERED, RBC 4.12 L, MCV 93.8, MCH 30.6, MCHC 32.6 L, RDW 14.7 H, MPV 8.7, Gran % 89.3 H, Lymphocytes % 7.4 L, Monocytes % 3.3, Eosinophils % 0, Basophils % 0, Absolute Granulocytes 15.9 H, Segmented Neutrophils 83 H, Band Neutrophils 7 H, Absolute Lymphocytes 1.3, Lymphocytes 7 L, Monocytes 3, Absolute Monocytes 0.6, Absolute Eosinophils 0, Absolute Basophils 0, Platelet Estimate VERIFIED BY SMEAR, Normocytic RBCs VERIFIED, Normochromic RBCs VERIFIED Assessment/Plan Assessment/Plan Assessment: 1. Chest pain syndrome 2. Sinus tachycardia with atrial ectopy and episodes of MAT 3. Community-acquired pneumonia with infiltrate, left upper lobe and lingula 4. Underlying COPD/emphysema 5. Coronary artery disease with severe coronary calcification noted on chest CT Recommendations: -At the moment, the patient stable from a cardiac standpoint -Continue current management as per the medical team -Echocardiogram report pending; on my review, the patient's left ventricular function is not normal. There are wall motion abnormalities present and she has mild to moderate depression of LV systolic function. -Eventually, in view of her severe coronary calcification, the patient will need further evaluation as outpatient with Dr. Cid. In addition, aggressive risk factor modification is appropriate. -Continue to monitor on telemetry for now. Please check an ECG now to document the patient's rhythm. -If the patient continues to have frequent ectopy, or if there is evidence of recurrent MAT, low-dose Cardizem can be added to the patient's regimen. Continue telemetry? Yes
[2017-12-29 22:32] VITALS: BP 112/62
[2017-12-30 06:55] VITALS: BP 106/64
[2017-12-30 07:59] LABS: ABSOLUTE BASOPHIL COUNT 0 /CUMM (0.0-0.2); ABSOLUTE EOSINOPHIL COUNT 0.1 /CUMM (0.0-0.7); ABSOLUTE GRANULOCYTE CT 7.9 /CUMM (1.4-6.5); ABSOLUTE LYMPH COUNT 2.4 /CUMM (1.2-3.4); BASOPHIL % 0.2 % (0.0-2.0); GRANULOCYTE % 69.4 % (42.2-75.2); HEMATOCRIT 39.5 % (37-47); MEAN CORPUSCULAR HGB 30.6 PG (27.0-31.0); MEAN CORPUSCULAR HGB CONC 32.9 G/DL (33.0-37.0); MEAN PLATELET VOLUME 8.1 FL (7.4-10.4); PLATELET COUNT 341 /CUMM (130-400); RBC DISTRIBUTION WIDTH 15.2 % (11.5-14.5); RED BLOOD CELL CT 4.24 /CUMM (4.20-5.40); WHITE BLOOD CELL COUNT 11.3 /CUMM (4.8-10.8)
--- NOTE | 2017-12-30 08:43 | PN- Housestaff ---
Marcus JOHNS,[facility] 12/30/17 0843: Subjective Follow-up For: Pneumonia Chest Pain Tele-Events Since Last Visit: ST/NSR with HR 82-100. No overnight events. Review of Systems Constitutional: Reports: no symptoms. Objective Last 24 Hrs of Vital Signs/I&O Vital Signs Date Time Temp Pulse Resp B/P B/P Pulse O2 O2 Flow FiO2 Mean Ox Delivery Rate 12/30 0853 92 Nasal 3.0L Cannula 12/30 0655 98.5 94 24 106/64 93 Nasal Cannula 12/30 0000 Nasal 3.0L Cannula 12/29 2232 98.0 99 21 112/62 92 Nasal Cannula 12/29 1829 91 Nasal 3.0L Cannula 12/29 1421 98.8 103 22 130/60 92 Nasal 3.0L Cannula 12/29 1154 92 Nasal 3.0L Cannula Intake & Output 12/30 1600 12/30 0800 12/30 0000 Intake Total 120 120 Output Total Balance 120 120 Intake, Oral 120 120 Patient 142 lb Weight Weight Bed scale Measurement Method Physical Exam General Appearance: Alert, Oriented X3, Cooperative, Mild Distress Skin: No Rashes, No Breakdown Skin Temp/Moisture Exam: Warm/Dry Sepsis Skin Exam (color): Normal for Ethnicity HEENT: Atraumatic Cardiovascular: Normal S1, Normal S2, No Murmurs Lungs: Normal Air Movement, decreased air entry at R base improved from yesterday Abdomen: Soft, No Tenderness Neurological: Normal Speech Extremities: 2+ bilateral lower extremity edema up to knees Last 24 Hrs of Lab/Harry Results Last 24 Hrs of Labs/Mics: Laboratory Tests 12/30/17 0646: Anion Gap 7, Estimated GFR > 60, BUN/Creatinine Ratio 22.0, CBC w Diff NO MAN DIFF REQ, RBC 4.24, MCV 93.0, MCH 30.6, MCHC 32.9 L, RDW 15.2 H, MPV 8.1, Gran % 69.4, Lymphocytes % 20.8, Monocytes % 8.6, Eosinophils % 1.0, Basophils % 0.2, Absolute Granulocytes 7.9 H, Absolute Lymphocytes 2.4, Absolute Monocytes 1.0 H, Absolute Eosinophils 0.1, Absolute Basophils 0 Assessment/Plan Assessment: 72-year-old female with past medical history of COPD not on oxygen, current 1 pack per day smoker presenting this admission due to chest pain. Assessment: 1. Chest Pain 2. Community Acquired Pneumonia 3. Emphysema 4. Sinus Tachycardia Plan: * Continue oxygen supplementation to maintain target oxygen saturations >92%. Continues to be on 3L. Will taper as tolerated. * Discontinue Ceftriaxone and start Amoxicillin 500mg TID. * Blood culture shows pansensitive strep pnemo * Her CT chest showed left upper and lingula infiltrate highly suggestive of pneumonia. Moderate emphysema with a few nonspecific scattered solid micronodules in the lungs. * She will need a repeat CT scan in 12 months. * She will need outpatient cardiology follow up with a possible stress test. She does have severe coronary calcifications. * Echocardiogram - LVEF of 40% with global hypokinesis. Will start her on Lisinopril 2.5mg daily. * She has significant lower extremity edema. will consider IV lasix 10mg for fluid overload. * Diet: Regular * DVT Prophylaxis: SC Lovenox * Code Status: DNR/DNI Problem List: 1. Community acquired pneumonia Pain Ratin Pain Location: none Pain Goal: Remain pain free Pain Plan: none Tomorrow's Labs & Rationales: CBC Nela Whiting 12/30/17 1109: Attending MD Review Statement Attending Statement Attending MD Statement: examined this patient, discuss w/resident/PA/BRIM WELT SEWING MACHINE OPERATOR, agreed w/resident/PA/BRIM WELT SEWING MACHINE OPERATOR, discussed with family, reviewed EMR data (avail), discussed with nursing, discussed with case mgmt, reviewed images, amended to note Attending Assessment/Plan: Patient still requring 3l of oxygen supplementation, though she feels she is improving and her shortness of breath is better and can go to bathroom herself with "less winded." Patient can be switched to PO abx. F/u CS pansensitive for strep pneumonia. She is found to have new onset CHF systolic EF 40% this admssion. Cardiology on board. Add diuretics as per cardiology. add Jimenez inhibitor at dsicharge low dose. Plan is to titrate off oxygen and anticipate dc as clinical condition imrpves.
[2017-12-30 14:08] VITALS: BP 100/50
--- NOTE | 2017-12-30 14:10 | PN- Cardiology ---
Subjective Subjective: The patient continues to improve from the point of view of her respiratory status. She denies any other cardiac symptoms. Lower extremity edema slightly worse today. Objective Vital Signs and I&Os Vital Signs Date Time Temp Pulse Resp B/P B/P Pulse O2 O2 Flow FiO2 Mean Ox Delivery Rate 12/30 1149 94 Nasal 3.0L Cannula 12/30 0853 92 Nasal 3.0L Cannula 12/30 0800 Nasal 3.0L Cannula 12/30 0655 98.5 94 24 106/64 93 Nasal Cannula 12/30 0000 Nasal 3.0L Cannula 12/29 2232 98.0 99 21 112/62 92 Nasal Cannula 12/29 1829 91 Nasal 3.0L Cannula 12/29 1421 98.8 103 22 130/60 92 Nasal 3.0L Cannula Intake & Output 12/30 1600 12/30 0812/30 0000 12/29 1600 12/29 0812/29 0000 Intake Total 120 120 465 905 Output Total 700 Balance 120 120 -235 905 Intake, IV 225 545 Intake, Oral 120 120 240 360 Number 0 Bowel Movements Output, Urine 700 Patient 142 lb 144 lb Weight Weight Bed scale Measurement Method Physical Exam: General Appearance: well developed/nourished, alert, awake, oriented Head: normal HEENT: Normal Neck: supple, JVP normal, carotid upstrokes normal bilaterally, no masses or thyromegaly Respiratory: chest non-tender, bilateral rhonchi greater on the left, improved from yesterday Cardiovascular: regular rate/rhythm, normal S1, S2, 1/6 systolic murmur Abdomen: normal bowel sounds, soft, non-tender Extremities: normal inspection, 1+ bilateral edema Vascular: Pulses are 2+ and equal bilaterally Neurologic: Grossly normal/nonfocal Current Medications: Current Medications Sig/Gisell Start time Last Medication Dose Route Stop Time Status Admin Acetaminophen 650 MG Q6P PRN 12/26 2344 AC PO Albuterol Sulfate 3 ML BID 12/27 1034 AC 12/30 INH 0852 Albuterol Sulfate 2 PUF Q4 PRN 12/26 2345 AC 12/29 INH 0407 Amoxicillin 500 MG TID 12/30 09 AC 12/30 PO 1020 Ceftriaxone Sodium 1,000 MG 1700 12/27 1700 DC 12/29 IV 1659 Enoxaparin Sodium 40 MG DAILY 12/27 899 AC 12/30 SC 0910 Hydrocodone Bitart/ 1 TAB Q6P PRN 12/26 2345 12/30 Acetaminophen PO 0910 Ipratropium [place] 2.5 ML BID 12/27 1035 12/30 INH 0852 Melatonin 5 MG AT BEDTIME 12/27 2130 12/29 PO 2200 Nicotine 21 MG 2100 12/27 220 12/29 TOP 2200 Patient Medication 1 ED ONE ONE 12/29 1645 MS Teaching ED 12/29 1646 Results Last 48 Hrs of Labs/Mics: Laboratory Tests 12/30/17 0646: Anion Gap 7, Estimated GFR > 60, BUN/Creatinine Ratio 22.0, CBC w Diff NO MAN DIFF REQ, RBC 4.24, MCV 93.0, MCH 30.6, MCHC 32.9 L, RDW 15.2 H, MPV 8.1, Gran % 69.4, Lymphocytes % 20.8, Monocytes % 8.6, Eosinophils % 1.0, Basophils % 0.2, Absolute Granulocytes 7.9 H, Absolute Lymphocytes 2.4, Absolute Monocytes 1.0 H, Absolute Eosinophils 0.1, Absolute Basophils 0 12/29/17 0644: Anion Gap 10, Estimated GFR > 60, BUN/Creatinine Ratio 32.0 H, Pro-B- Natriuretic Pept 5950 H, CBC w Diff NO MAN DIFF REQ, RBC 4.15 L, MCV 94.1, MCH 30.6, MCHC 32.6 L, RDW 15.2 H, MPV 8.5, Gran % 72.4, Lymphocytes % 19.2 L, Monocytes % 7.9, Eosinophils % 0.2, Basophils % 0.3, Absolute Granulocytes 8.5 H, Absolute Lymphocytes 2.3, Absolute Monocytes 0.9 H, Absolute Eosinophils 0, Absolute Basophils 0 Assessment/Plan Assessment/Plan Assessment: 1. Chest pain syndrome 2. Sinus tachycardia with atrial ectopy and episodes of MAT 3. Community-acquired pneumonia with infiltrate, left upper lobe and lingula 4. Underlying COPD/emphysema 5. Coronary artery disease with severe coronary calcification noted on chest CT 6. Cardiomyopathy with ejection fraction of 35-40% Recommendations: -At the moment, the patient stable from a cardiac standpoint -Continue current management as per the medical team -Echocardiogram report pending; on my review, the patient's left ventricular function is not normal. There are wall motion abnormalities present and she has mild to moderate depression of LV systolic function. -Eventually, in view of her severe coronary calcification, the patient will need further evaluation as outpatient with Dr. Cid. In addition, aggressive risk factor modification is appropriate. -Continue to monitor on telemetry for now. Please check an ECG now to document the patient's rhythm. -In view of the patient's arrhythmias, depressed ejection fraction, etc., addition of another agent might be useful. Consideration for low-dose carvedilol at 3.25 mg twice daily or low-dose lisinopril at 2.5-5 mg twice daily might be a consideration. I will discuss this further with the medical team Continue telemetry? Yes
[2017-12-30 15:54] VITALS: BP 108/68
[2017-12-30 22:02] VITALS: BP 102/58
[2017-12-31 07:00] VITALS: BP 136/70
[2017-12-31 08:09] LABS: ABSOLUTE BASOPHIL COUNT 0 /CUMM (0.0-0.2); ABSOLUTE EOSINOPHIL COUNT 0.2 /CUMM (0.0-0.7); ABSOLUTE GRANULOCYTE CT 8.7 /CUMM (1.4-6.5); ABSOLUTE LYMPH COUNT 2.2 /CUMM (1.2-3.4); ABSOLUTE MONOCYTE COUNT 0.8 /CUMM (0.10-0.60); BASOPHIL % 0.3 % (0.0-2.0); EOSINOPHIL % 1.4 % (0-5); GRANULOCYTE % 73.6 % (42.2-75.2); HEMATOCRIT 37.5 % (37-47); MEAN CORPUSCULAR HGB 30.5 PG (27.0-31.0); MEAN CORPUSCULAR HGB CONC 32.7 G/DL (33.0-37.0); MEAN CORPUSCULAR VOLUME 93.4 FL (81.0-99.0); MEAN PLATELET VOLUME 7.9 FL (7.4-10.4); PLATELET COUNT 375 /CUMM (130-400); RBC DISTRIBUTION WIDTH 14.8 % (11.5-14.5); RED BLOOD CELL CT 4.01 /CUMM (4.20-5.40); WHITE BLOOD CELL COUNT 11.8 /CUMM (4.8-10.8)
--- NOTE | 2017-12-31 09:15 | PN- Housestaff ---
Gabriel JOHNS,[place] 12/31/17913: Subjective Follow-up For: Pneumonia Chest Pain Subjective: Patient was seen and examined at bedside. She was resting comfortably. She had no acute events overnight. She states that she continues to have intermittent episodes of left-sided chest pain, unchanged over the past several days, however they are occurring less frequently. She denies any dyspnea and has successfully been weaned off of the supplemental O2. She is eager to be discharged, and denies any fever, chills, nausea, vomiting. Review of Systems Constitutional: Reports: see HPI. Objective Last 24 Hrs of Vital Signs/I&O Vital Signs Date Time Temp Pulse Resp B/P B/P Pulse O2 O2 Flow FiO2 Mean Ox Delivery Rate 12/31 0813 92 Room Air Room Air 12/31 0805 108 136/70 12/31 0800 92 Room Air 12/31 0700 97.9 102 24 136/70 93 12/31 0000 94 Nasal 2.5L Cannula 12/30 2202 98.1 88 22 102/58 94 Nasal 2.5L Cannula 12/30 1940 94 Nasal 2.0L Cannula 12/30 1614 92 Nasal 2.5L Cannula 12/30 1614 87 Nasal 2.0L Cannula 12/30 1556 104 108/68 12/30 1554 104 108/68 12/30 1408 98.1 98 22 100/50 95 Nasal Cannula Intake & Output 12/31 1600 12/31 0800 12/31 0000 Intake Total 400 840 Output Total Balance 400 840 Intake, Oral 400 840 Patient 141 lb Weight Physical Exam General Appearance: Alert, Oriented X3, Cooperative, No Acute Distress Skin Temp/Moisture Exam: Warm/Dry Cardiovascular: Regular Rate, Normal S1, Normal S2 Lungs: diminished breath sounds at the R lung base Abdomen: Normal Bowel Sounds, Soft, No Tenderness Neurological: Normal Speech, Normal Tone, Sensation Intact Extremities: No Clubbing, No Cyanosis, 1+ billateral edema Current Medications: Current Medications Sig/Gisell Start time Last Medication Dose Route Stop Time Status Admin Acetaminophen 650 MG Q6P PRN 12/26 2345 AC PO Albuterol Sulfate 3 ML BID 12/27 1034 AC 12/31 INH 0810 Albuterol Sulfate 2 PUF Q4 PRN 12/26 2345 AC 12/29 INH 0407 Amoxicillin 500 MG TID 05/11 0926 AC 12/31 PO 1307 Enoxaparin Sodium 40 MG DAILY 12/27 0900 12/31 SC 0805 Hydrocodone Bitart/ 1 TAB Q6P PRN 12/26 2345 12/31 Acetaminophen PO 0642 Ipratropium [place] 2.5 ML BID 12/27 1035 12/31 INH 0810 Lisinopril 2.5 MG DAILY 12/30 1421 12/31 PO 0805 Melatonin 5 MG AT BEDTIME 12/27 2129 12/30 PO 2207 Nicotine 21 MG 2100 12/27 220 12/30 TOP 2207 Last 24 Hrs of Lab/Harry Results Last 24 Hrs of Labs/Mics: Laboratory Tests 12/31/17 0635: Anion Gap 5, Estimated GFR > 60, BUN/Creatinine Ratio 22.0, Magnesium 2.0, CBC w Diff NO MAN DIFF REQ, RBC 4.01 L, MCV 93.4, MCH 30.5, MCHC 32.7 L, RDW 14.8 H , MPV 7.9, Gran % 73.6, Lymphocytes % 18.3 L, Monocytes % 6.4, Eosinophils % 1.4, Basophils % 0.3, Absolute Granulocytes 8.7 H, Absolute Lymphocytes 2.2, Absolute Monocytes 0.8 H, Absolute Eosinophils 0.2, Absolute Basophils 0 Assessment/Plan Assessment: 1. Chest Pain 2. Community Acquired Pneumonia 3. Emphysema 4. Sinus Tachycardia Plan: * Patient was successfully weaned off of supplemental O2, oxygen saturation in the low 90s on room air * Continue amoxicillin 500mg TID. * Blood culture shows pansensitive strep pnemo * WBC remains mildly elevated 11.8 today * Her CT chest showed left upper and lingula infiltrate highly suggestive of pneumonia. Moderate emphysema with a few nonspecific scattered solid micronodules in the lungs. * She will need a repeat CT scan in 12 months. * She will need outpatient cardiology follow up with a possible stress test. She does have severe coronary calcifications. * Echocardiogram - LVEF of 40% with global hypokinesis. Will start her on Lisinopril 2.5mg daily. * Anticipated discharge tomorrow * Patient was started on aspirin, statin, low-dose carvedilol given suspected CAD * Diet: Regular * DVT Prophylaxis: SC Lovenox * Code Status: DNR/DNI Problem List: 1. Community acquired pneumonia Pain Ratin Pain Location: L sided chest, intermittent Pain Goal: Pain 4 or less Pain Plan: pain pathway Tomorrow's Labs & Rationales: cbc, bep Carlitos Mari MD 12/31/17 1611: Attending MD Review Statement Attending Statement Attending Assessment/Plan: Patient is saturating 92% on room at this morning, though she feels she is improving and her shortness of breath is better and can go to bathroom herself with "less winded." On examination blood pressure is 136/70, heart rate of 108/m, patient is afebrile, saturating 92% on room air. 1. Strep pneumonia -continue with amoxicillin 500 mg 3 times a day to complete the course 2. Sinus tachycardia with episodes of atrial ectopy noted on telemetry 3. Failure with reduced ejection fraction 35-40% Appreciate cardiology recommendations since patient has evidence of coronary artery disease and coronary CT will benefit from addition of aspirin and statins. Continue with current dose of Coreg 3.125 twice a day and lisinopril 2.5 mg once daily. And plan is for discharge in the morning.
[2017-12-31 13:50] VITALS: BP 106/62
--- NOTE | 2017-12-31 13:53 | PN- Cardiology ---
Subjective Subjective: The patient is awake, alert, states feeling overall improved The events of the last 24 hours as well as telemetry were reviewed. Review of Systems: The review of systems is negative for chest pains, palpitations nor lightheadedness. The remainder of the 14 point review of systems is noncontributory with the exception of above. Objective Vital Signs and I&Os Vital Signs Date Time Temp Pulse Resp B/P B/P Pulse O2 O2 Flow FiO2 Mean Ox Delivery Rate 12/31 0813 92 Room Air Room Air 12/31 0805 108 136/70 12/31 0800 92 Room Air 12/31 0700 97.9 102 24 136/70 93 12/31 0000 94 Nasal 2.5L Cannula 12/30 2202 98.1 88 22 102/58 94 Nasal 2.5L Cannula 12/30 1940 94 Nasal 2.0L Cannula 12/30 1614 92 Nasal 2.5L Cannula 12/30 1614 87 Nasal 2.0L Cannula 12/30 1556 104 108/68 12/30 1554 104 108/68 12/30 1408 98.1 98 22 100/50 95 Nasal Cannula Intake & Output 12/31 1600 12/31 0800 12/31 0000 12/30 1600 12/30 0800 12/30 0000 Intake Total 400 840 684 120 120 Output Total 500 Balance 400 840 184 120 120 Intake, Oral 400 840 684 120 120 Output, Urine 500 Patient 141 lb 142 lb Weight Weight Bed scale Measurement Method Physical Exam: General: Nontoxic, no apparent distress. HEENT: Sclera and conjunctiva within normal limits, without xanthelasmas. Neck: Carotids 2+ without bruits. Respiratory: Scattered rhonchi and rales, air movement is good, without accessory respiratory muscle use. Heart: Regular rate and rhythm, without murmurs, without JVD. Abdomen: Soft, nontender, no masses, normoactive bowel sounds. Extremities: Without clubbing, cyanosis, 1 mm pitting edema in both lower extremities Neuro: Nonfocal exam, strength, 5 out of 5 Skin: Within normal limits without lesions. Psych: Mood and affect: Normal Current Medications: Current Medications Sig/Gisell Start time Last Medication Dose Route Stop Time Status Admin Acetaminophen 650 MG Q6P PRN 12/26 2345 AC PO Albuterol Sulfate 3 ML BID 12/27 1034 AC 12/31 INH 0810 Albuterol Sulfate 2 PUF Q4 PRN 12/26 2345 AC 12/29 INH 0407 Amoxicillin 500 MG TID 12/30 0926 AC 12/31 PO 1307 Enoxaparin Sodium 40 MG DAILY 12/27 0900 12/31 SC 0805 Hydrocodone Bitart/ 1 TAB Q6P PRN 12/26 2345 AC 12/31 Acetaminophen PO 0642 Ipratropium [place] 2.5 ML BID 12/27 1035 AC 12/31 INH 0810 Lisinopril 2.5 MG DAILY 12/30 1421 AC 12/31 PO 0805 Melatonin 5 MG AT BEDTIME 12/27 2130 AC 12/30 PO 2207 Nicotine 21 MG 2100 12/27 220 12/30 TOP 220 Results Last 48 Hrs of Labs/Mics: Laboratory Tests 12/31/17 0635: Anion Gap 5, Estimated GFR > 60, BUN/Creatinine Ratio 22.0, Magnesium 2.0, CBC w Diff NO MAN DIFF REQ, RBC 4.01 L, MCV 93.4, MCH 30.5, MCHC 32.7 L, RDW 14.8 H , MPV 7.9, Gran % 73.6, Lymphocytes % 18.3 L, Monocytes % 6.4, Eosinophils % 1.4, Basophils % 0.3, Absolute Granulocytes 8.7 H, Absolute Lymphocytes 2.2, Absolute Monocytes 0.8 H, Absolute Eosinophils 0.2, Absolute Basophils 0 12/30/17 0646: Anion Gap 7, Estimated GFR > 60, BUN/Creatinine Ratio 22.0, CBC w Diff NO MAN DIFF REQ, RBC 4.24, MCV 93.0, MCH 30.6, MCHC 32.9 L, RDW 15.2 H, MPV 8.1, Gran % 69.4, Lymphocytes % 20.8, Monocytes % 8.6, Eosinophils % 1.0, Basophils % 0.2, Absolute Granulocytes 7.9 H, Absolute Lymphocytes 2.4, Absolute Monocytes 1.0 H, Absolute Eosinophils 0.1, Absolute Basophils 0 Assessment/Plan Assessment/Plan 1. Chest pain syndrome 2. Sinus tachycardia with atrial ectopy and episodes of MAT 3. Community-acquired pneumonia with infiltrate, left upper lobe and lingula 4. Underlying COPD/emphysema 5. Coronary artery disease with severe coronary calcification noted on chest CT 6. Cardiomyopathy with ejection fraction of 35-40% The patient has coronary artery disease based on calcifications noted on CT and a cardiomyopathy. Further medication adjustments should be undertaken such as initiation of an aspirin daily as well as statins. Beta blockers have not been given due to concerns for reactive airway disease; however, this may be reassessed. Further treatment of her underlying coronary artery disease will be undertaken by her primary vice president business development as an outpatient. Continue telemetry? Yes
[2017-12-31 22:55] VITALS: BP 90/56
[2018-01-01 07:35] VITALS: BP 114/66
--- NOTE | 2018-01-01 08:19 | PN- Housestaff ---
See Addendum Subjective Follow-up For: Pneumonia Chest Pain Tele-Events Since Last Visit: NSR with HR 822-95 Subjective: Patient was seen and examined at bedside. States that she was weaned off oxygen yesterday but had to be put back on it around late evening. She still has mild chest pain with deep inspiration but has significantly improved since she came in. Feels her breathing has improved Review of Systems Constitutional: Reports: no symptoms. Objective Last 24 Hrs of Vital Signs/I&O Vital Signs Date Time Temp Pulse Resp B/P B/P Pulse O2 O2 Flow FiO2 Mean Ox Delivery Rate 01/01 0922 94 Nasal 1.0L Cannula 01/01 0834 74 130/70 01/01 0833 74 130/70 01/01 0800 93 Nasal 1.0L Cannula 01/01 0735 98.2 99 22 114/66 91 Nasal 1.0L Cannula 01/01 0000 Nasal 1.0L Cannula 12/31 2255 98.6 88 23 90/56 93 12/31 2118 90 124/70 12/31 1600 93 Nasal 1.0L Cannula 12/31 1350 98.0 78 20 106/62 95 Intake & Output 01/01 1600 01/01 0800 01/01 0000 Intake Total 350 Output Total Balance 350 Intake, Oral 350 Patient 143 lb Weight Weight Bed scale Measurement Method Physical Exam General Appearance: Alert, Oriented X3, Cooperative, Mild Distress Skin: No Rashes, No Breakdown Skin Temp/Moisture Exam: Warm/Dry Sepsis Skin Exam (color): Normal for Ethnicity HEENT: Atraumatic Cardiovascular: Normal S1, Normal S2, No Murmurs Lungs: Clear to Auscultation, Normal Air Movement Abdomen: Soft, No Tenderness Neurological: Normal Speech Extremities: 2+ pitting b/l lower extremity edema up to knees Last 24 Hrs of Lab/Harry Results Last 24 Hrs of Labs/Mics: Laboratory Tests 01/01/18 0655: Anion Gap 6, Estimated GFR > 60, BUN/Creatinine Ratio 20.0, CBC w Diff NO MAN DIFF REQ, RBC 4.08 L, MCV 93.7, MCH 30.5, MCHC 32.5 L, RDW 14.6 H, MPV 7.8, Gran % 68.9, Lymphocytes % 20.9, Monocytes % 6.7, Eosinophils % 3.1, Basophils % 0.4, Absolute Granulocytes 7.4 H, Absolute Lymphocytes 2.3, Absolute Monocytes 0.7 H, Absolute Eosinophils 0.3, Absolute Basophils 0 Assessment/Plan Assessment: 72-year-old female with past medical history of COPD not on oxygen, current 1 pack per day smoker presenting this admission due to chest pain. Assessment: 1. Chest Pain 2. Community Acquired Pneumonia 3. Emphysema 4. Sinus Tachycardia - resolved Plan: * Continue oxygen supplementation to maintain target oxygen saturations >92%. Currently on 1L. Will attempt to wean her off. * She can likely be discharged tomorrow on home oxygen if needed. * Continue Amoxicillin 500mg TID. * Blood cultures showed pansensitive strep pnemo * Her CT chest showed left upper and lingula infiltrate highly suggestive of pneumonia. Moderate emphysema with a few nonspecific scattered solid micronodules in the lungs. * She will need a repeat CT scan in 12 months. * She will need outpatient cardiology follow up with a possible stress test. She does have severe coronary calcifications. * Continue Aspirin and Statin * Echocardiogram - LVEF of 40% with global hypokinesis. Will start her on Lisinopril 2.5mg daily. * She has significant lower extremity edema. Offered Lasix but wishes to start it at home rather than in the hospital. * Diet: Regular * DVT Prophylaxis: SC Lovenox * Code Status: DNR/DNI Problem List: 1. COPD (chronic obstructive pulmonary disease) Pain Ratin Pain Location: none Pain Goal: Remain pain free Pain Plan: none Tomorrow's Labs & Rationales: CBC, BEP
[2018-01-01 08:47] LABS: ABSOLUTE BASOPHIL COUNT 0 /CUMM (0.0-0.2); ABSOLUTE EOSINOPHIL COUNT 0.3 /CUMM (0.0-0.7); ABSOLUTE GRANULOCYTE CT 7.4 /CUMM (1.4-6.5); ABSOLUTE LYMPH COUNT 2.3 /CUMM (1.2-3.4); ABSOLUTE MONOCYTE COUNT 0.7 /CUMM (0.10-0.60); BASOPHIL % 0.4 % (0.0-2.0); EOSINOPHIL % 3.1 % (0-5); GRANULOCYTE % 68.9 % (42.2-75.2); HEMATOCRIT 38.2 % (37-47); MEAN CORPUSCULAR HGB 30.5 PG (27.0-31.0); MEAN CORPUSCULAR HGB CONC 32.5 G/DL (33.0-37.0); MEAN CORPUSCULAR VOLUME 93.7 FL (81.0-99.0); MEAN PLATELET VOLUME 7.8 FL (7.4-10.4); PLATELET COUNT 423 /CUMM (130-400); RBC DISTRIBUTION WIDTH 14.6 % (11.5-14.5); RED BLOOD CELL CT 4.08 /CUMM (4.20-5.40); WHITE BLOOD CELL COUNT 10.8 /CUMM (4.8-10.8)
--- NOTE | 2018-01-01 12:43 | PN- Cardiology ---
Subjective Subjective: The patient is awake, alert, states feeling mildly improved The events of the last 24 hours as well as telemetry were reviewed. Review of Systems: The review of systems is negative for chest pains, palpitations nor lightheadedness. The remainder of the 14 point review of systems is noncontributory with the exception of above. Objective Vital Signs and I&Os Vital Signs Date Time Temp Pulse Resp B/P B/P Pulse O2 O2 Flow FiO2 Mean Ox Delivery Rate 01/01 922 94 Nasal 1.0L Cannula 01/01 0834 74 130/70 01/01 0833 74 130/70 01/01 0800 93 Nasal 1.0L Cannula 01/01 0735 98.2 99 22 114/66 91 Nasal 1.0L Cannula 01/01 0000 Nasal 1.0L Cannula 12/31 2255 98.6 88 23 90/56 93 12/31 2118 90 124/70 12/31 1600 93 Nasal 1.0L Cannula 12/31 1350 98.0 78 20 106/62 95 Intake & Output 01/01 0800 01/01 0000 12/31 1600 12/31 0800 12/31 0000 Intake Total 350 400 400 840 Output Total Balance 350 400 400 840 Intake, Oral 350 400 400 840 Patient 143 lb 141 lb Weight Weight Bed scale Measurement Method Physical Exam: General: Nontoxic, no apparent distress. HEENT: Sclera and conjunctiva within normal limits, without xanthelasmas. Neck: Carotids 2+ without bruits. Respiratory: Scattered rhonchi, air movement is good, without accessory respiratory muscle use. Heart: Regular rate and rhythm, without murmurs, without JVD. Abdomen: Soft, nontender, no masses, normoactive bowel sounds. Extremities: Without clubbing, cyanosis, without edema. Neuro: Nonfocal exam, strength, 5 out of 5 Skin: Within normal limits without lesions. Psych: Mood and affect: Normal Current Medications: Current Medications Sig/Gisell Start time Last Medication Dose Route Stop Time Status Admin Acetaminophen 650 MG Q6P PRN 12/26 2345 AC PO Albuterol Sulfate 3 ML BID 12/27 1034 AC 01/01 INH 0819 Albuterol Sulfate 2 PUF Q4 PRN 12/26 2345 AC 12/29 INH 0407 Amoxicillin 500 MG TID 12/30 09 AC 01/01 PO 0834 Aspirin 81 MG DAILY 12/31 1449 AC 01/01 PO 0834 Atorvastatin Calcium 20 MG 1700 12/31 1700 AC 12/31 PO 1612 Carvedilol 3.125 MG BID 12/31 2100 AC 01/01 PO 0834 Enoxaparin Sodium 40 MG DAILY 12/27 0900 AC 01/01 SC 0833 Hydrocodone Bitart/ 1 TAB Q6P PRN 12/26 2345 AC 01/01 Acetaminophen PO 0837 Ipratropium [place] 2.5 ML BID 12/27 1035 AC 01/01 INH 0819 Lisinopril 2.5 MG DAILY 12/30 1421 AC 01/01 PO 0833 Melatonin 5 MG AT BEDTIME 12/27 2129 AC 12/31 PO 2113 Nicotine 21 MG 12/27 12/31 TOP 2111 Results Last 48 Hrs of Labs/Mics: Laboratory Tests 01/01/18 0655: Anion Gap 6, Estimated GFR > 60, BUN/Creatinine Ratio 20.0, CBC w Diff NO MAN DIFF REQ, RBC 4.08 L, MCV 93.7, MCH 30.5, MCHC 32.5 L, RDW 14.6 H, MPV 7.8, Gran % 68.9, Lymphocytes % 20.9, Monocytes % 6.7, Eosinophils % 3.1, Basophils % 0.4, Absolute Granulocytes 7.4 H, Absolute Lymphocytes 2.3, Absolute Monocytes 0.7 H, Absolute Eosinophils 0.3, Absolute Basophils 0 12/31/17 0635: Anion Gap 5, Estimated GFR > 60, BUN/Creatinine Ratio 22.0, Magnesium 2.0, CBC w Diff NO MAN DIFF REQ, RBC 4.01 L, MCV 93.4, MCH 30.5, MCHC 32.7 L, RDW 14.8 H , MPV 7.9, Gran % 73.6, Lymphocytes % 18.3 L, Monocytes % 6.4, Eosinophils % 1.4, Basophils % 0.3, Absolute Granulocytes 8.7 H, Absolute Lymphocytes 2.2, Absolute Monocytes 0.8 H, Absolute Eosinophils 0.2, Absolute Basophils 0 Assessment/Plan Assessment/Plan 1. Chest pain syndrome 2. Sinus tachycardia with atrial ectopy and episodes of MAT 3. Community-acquired pneumonia with infiltrate, left upper lobe and lingula 4. Underlying COPD/emphysema 5. Coronary artery disease with severe coronary calcification noted on chest CT 6. Cardiomyopathy with ejection fraction of 35-40% The patient has coronary artery disease based on calcifications noted on CT and a cardiomyopathy. Further medication adjustments should be undertaken such as initiation of an aspirin daily as well as statins. Beta blockers have not been given due to concerns for reactive airway disease; however, this may be reassessed. Further treatment of her underlying coronary artery disease will be undertaken by her primary manager trainee as an outpatient. Continue telemetry? No
[2018-01-01] MEDS ORDERED: AMOXICILLIN500 M2 PO ×2 (12:59→13:01)
[2018-01-01] MEDS ORDERED: ASPIRIN EC81 M1 PO (13:03)
[2018-01-01] MEDS ORDERED: ATORVASTATIN CA20 M1 PO (13:03)
[2018-01-01 14:00] VITALS: BP 92/58
--- NOTE | 2018-01-01 18:38 | Discharge Summary ---
Visit Information Visit Dates Admission Date: 12/26/17 Discharge Date: 01/02/18 Hospital Course Course Attending Physician: Nela Whiting MD Primary Care Physician: Ruth JOHNS,Peyman Rodas Hospital Course: Ms To is a 72-year-old female with past medical history of COPD not on oxygen, current 1 pack per day smoker who presented to the ED with complains of chest and back pain Below is a list of conditions she was seen and treated for Community Acquired Pneumonia Patient presented with complains of productive cough with thick green phlegm along with chest pain worsened with deep inspiration. Her imaging showed a dense consolidation in the lingula and left upper lobe. She was initially started on IV Ceftriaxone along with oxygen supplementation and TRC/nebs. Patient responded slowly but well to treatment. Her blood cultures grew pansensitive strep pnemo. She was switched to oral Amoxicillin which she needs to continue as outpatient. Her oxygen was slowly tapered off and her pulse ox showed good resting and ambulating saturations on room air. She was discharged in stable disposition. CAD/Cardiomyopathy: Her chest CT showed severe coronary artery calcifications. She was started on an aspirin, statin and a beta lucy. Her Echocardiogram showed moderately reduced LV systolic function with global hypinesis and estimated LVEF of 40%. She would require futher work up as an outpatient. She had significant lower extremity edema for which she was started on Lasix and recommended to continue outpatient. She was advised to follow up with her felt dyeing machine tender after discharge. Pulmonary Nodules: Her Chest CT showed moderate emphysema with a few nonspecific scattered solid micronodules in the lungs. Follow up CT scan in 12 months is recommended. Allergies: Coded Allergies: Penicillins (Intermediate, HIVES/RASH/ITCH 12/26/17) Significant Procedures: SERVICE DATE: 12/29/17132 EXAM TYPE: RAD - XRY-PORTABLE CHEST XRAY FINDINGS: The lungs are well expanded. There is persistent hazy opacity at the left mid to lower lung, likely corresponding to the consolidation in the left upper lobe seen on prior CT. No pneumothorax. There is blunting at the right costophrenic angle suggestive of a small pleural effusion. The cardiomediastinal silhouette is unchanged, with a calcified aorta. IMPRESSION: Similar appearance of left upper lobe consolidation. There is now blunting of the right costophrenic angle suggesting a small pleural effusion. SERVICE DATE: 12/28/17-999 EXAM TYPE: CARD - ECHOCARDIOGRAM FINDINGS Left Ventricle Mild concentric left ventricular hypertrophy. Mild left ventricular dilatation. Abnormal relaxation filling pattern of the left ventricle for age (stage 1 diastolic dysfunction). Moderately reduced LV systolic function with global hypinesis. LVEF estimated at 40%. Right Ventricle Normal right ventricular size and function. Right Atrium Normal right atrial size. Left Atrium Normal left atrial size. Mitral Valve Mitral valve thickened. Mild mitral regurgitation. Aortic Valve Diffuse thickening (sclerosis) of the aortic valve cusps without reduced excursion. No aortic stenosis. No aortic regurgitation. Tricuspid Valve Tricuspid valve not well visualized, grossly normal. Pulmonic Valve Pulmonic valve not well visualized, grossly normal. Pericardium No pericardial effusion. Great Vessels Normal size aortic root. CONCLUSIONS Mild concentric left ventricular hypertrophy. Mild left ventricular dilatation. Abnormal relaxation filling pattern of the left ventricle for age (stage 1 diastolic dysfunction). Mild mitral regurgitation. Moderately reduced LV systolic function with global hypinesis. LVEF estimated at 40%. SERVICE DATE: 12/27/17- EXAM TYPE: CAT - CT CHEST W IV CONTRAST FINDINGS: LUNGS: There is moderate centrilobular and mild paraseptal emphysema. Biapical irregular pleural-based reticular nodular opacities are seen, consistent with scarring. A few scattered nonspecific 3 to 4 mm solid noncalcified irregularly marginated nodular densities are seen in the lungs, including in the left upper lobe (series 4, image 109, 150) and left lower lobe (series 4, image 387). Corresponding to the chest x-ray findings, there is dense consolidation with air bronchograms seen in the lingula and anterior segment of the left upper lobe. No evidence of central obstructing mass or endobronchial lesion is seen. No focal lung nodule or mass. No effusion or pneumothorax. Central airways diffusely thickened and patent. Mild peribronchial thickening is seen in the right middle lobe (series 4, image 251) patchy peripheral subsegmental atelectasis is seen in the lateral segment of the right middle lobe (series 4, image 288). PLEURA: There is no pleural effusion. No pleural mass or thickening. LYMPHATIC STRUCTURES: Multiple mediastinal lymph nodes are seen, largest of which is in the prevascular space, measuring 0.8 cm in short axis. No hilar or axillary adenopathy or free fluid collection. CARDIOVASCULAR STRUCTURES: Aortic and heart size normal. Moderate atherosclerotic calcifications of the aorta and severe coronary artery calcifications. No pericardial effusion. UPPER ABDOMEN: There is some fullness at the GE junction, suggestive of a small hiatal hernia. Postcholecystectomy maninder are seen in place. Diffuse atrophy of the included portions of the pancreas is noted. Solid organs in the upper abdomen to the extent included are otherwise unremarkable. OSSEOUS STRUCTURES: Diffuse osteopenia. Moderate degenerative disc disease seen throughout the mid thoracic spine with disc space narrowing and vertebral spondylosis including prominent posterior disc osteophyte complex indenting the thecal sac and causing mild spinal stenosis at the T6-T7 level. Mild loss in height of the T8 vertebral body is seen. No suspicious focal findings. IMPRESSION: 1. Dense consolidation is seen in the lingula and anterior segment of the left upper lobe, consistent with pneumonia. No central obstructing mass or endobronchial lesion is seen. 2. Moderate emphysema with a few nonspecific scattered solid micronodules in the lungs. Given the patient's high-risk status, optional CT scan follow-up in 12 months is recommended. 3. A few reactive lymph nodes are seen in the mediastinum without suspicious adenopathy. 4. Severe coronary artery calcifications. 5. Other incidental findings include small hiatal hernia, post cholecystectomy maninder, atrophic pancreas, osteopenia and moderate degenerative disc disease in the thoracic spine. SERVICE DATE: 12/26/17 EXAM TYPE: RAD - XRY-PORTABLE CHEST XRAY FINDINGS: There is hazy opacity of the left mid to lower lung and indistinctness of the left cardiac border. These findings are new compared to 01/10/2017. The borders of the left hilum are suboptimally defined, and there is hilar fullness. Cardiac silhouette is normal in size. No overt pleural effusion or pneumothorax. Bones appear diffusely osteopenic. IMPRESSION: There is abnormal haziness of the left lung that partially obscures the cardiac border. This suggests presence of a lingular infiltrate or atelectasis. There is mild fullness of the left hilum, as well. In an acute setting, pneumonia would be suspected. However, if the patient has more subacute or chronic symptoms, then the possibility of underlying neoplasia would need to be considered. Chest CT with i.v. contrast (and/or PA/LAT chest radiographs) may be needed for further evaluation. Disposition Summary Disposition Principal Diagnosis: Community Acquired Pneumonia Sinus Tachycardia Cardiomyopathy Coronary artery disease Pulmonary Nodules Additional Diagnosis: COPD Discharge Disposition: home or self care Discharge Instructions General Discharge Information Code Status: Do Not Resucitate/Intubat Patient's Diet: Heart Healthy Patient's Activity: As tolerated Follow-Up Instructions/Appts: Please follow up with a PCP and felt dyeing machine tender within one week of discharge. Medications at Discharge Discharge Medications: Start taking the following new medications: Furosemide (Furosemide) 20 MG TABLET 1 Tablet ORAL DAILY Qty = 30 No Refills Comments: Last Taken: 01/02/18 Time: 10:00 AM Budesonide/Formoterol Fumarate (Symbicort 80-4.5 Mcg Inhaler) 80 MCG-4.5 MCG/ ACTUATION HFA.AER.AD 2 Puff Inhale through mouth TWICE DAILY Qty = 10.2 No Refills Instructions: . Comments: NOT GIVEN IN HOSPITAL Aspirin (Ecotrin*) 81 MG TABLET.DR 1 Tablet ORAL DAILY Qty = 30 No Refills Instructions: . Comments: Last Taken: 01/02/18 Time: 10:00 AM Lisinopril (Lisinopril) 5 MG TABLET 1 Tablet ORAL DAILY Qty = 30 No Refills Instructions: . Comments: Last Taken: 01/02/18 Time: 10:00 AM Atorvastatin Calcium (Atorvastatin Calcium) 20 MG TABLET 1 Tablet ORAL DAILY Qty = 30 No Refills Instructions: . Comments: Last Taken: 01/01/18 Time: 5:00 PM Albuterol Sulfate (Ventolin Hfa) 90 MCG HFA.AER.AD 2 Puff Inhale through mouth EVERY 4-6 HOURS NEEDED as needed for Shortness of breath Qty = 1 No Refills Instructions: . Comments: Last Taken: 01/02/18 Time: 10:16 AM Amoxicillin (Amoxicillin) 500 MG CAPSULE 1 Capsule ORAL THREE TIMES DAILY Qty = 15 No Refills Instructions: . Comments: Last Taken: 01/02/18 Time: 1:15 PM Copies To: Papito JOHNS,Nolan Khan Attending MD Review Statement Documenting Attending: Nela Whiting MD Other Findings: Patient with clinical improvement. Patient is started on asa/statin/PO abx/ low dose coreg and low dose lisinopril. Plan is to titrate off oxygen and see if she can tolerate low dose lasix. Her lung reserves demonstrate moderate emphysema and her systolic heart failure is also contributing to her symptoms. She needs close o/p follow with cardiology for cardiac catherization and continue with medical management. Anticipate dc soon.
[2018-01-01 22:22] VITALS: BP 92/60
[2018-01-02 06:26] VITALS: BP 98/72
--- NOTE | 2018-01-02 07:11 | PN- Housestaff ---
Marcus JOHNS,[facility] 01/02/18 0711: Subjective Follow-up For: Pneumonia Chest Pain Tele-Events Since Last Visit: off tele Subjective: Patient was seen and examined at bedside. She is anxious to go home. She denies any symptoms of chest pain, dyspnea, abdominal pain or any other associated symptoms. Review of Systems Constitutional: Reports: no symptoms. Objective Last 24 Hrs of Vital Signs/I&O Vital Signs Date Time Temp Pulse Resp B/P B/P Pulse O2 O2 Flow FiO2 Mean Ox Delivery Rate 01/02 0626 98.2 87 20 98/72 93 01/02 0000 Nasal 1.0L Cannula 01/01 2222 99.1 88 18 92/60 94 01/01 2158 88 92/60 01/01 1920 93 Nasal 1.0L Cannula 01/01 1600 Nasal 1.0L Cannula 01/01 1400 97.7 87 20 92/58 94 Intake & Output 01/02 1600 01/02 0800 01/02 0000 Intake Total 120 120 Output Total Balance 120 120 Intake, Oral 120 120 Patient 142 lb Weight Physical Exam General Appearance: Alert, Oriented X3, Cooperative, Mild Distress Skin: No Rashes, No Breakdown Skin Temp/Moisture Exam: Warm/Dry Sepsis Skin Exam (color): Normal for Ethnicity HEENT: Atraumatic Cardiovascular: Normal S1, Normal S2, No Murmurs Lungs: Clear to Auscultation, Normal Air Movement Abdomen: Soft, No Tenderness Neurological: Normal Speech Extremities: b/l lower extremity edema up to knees Last 24 Hrs of Lab/Harry Results Last 24 Hrs of Labs/Mics: Laboratory Tests 01/02/18 0722: Anion Gap 5, Estimated GFR > 60, BUN/Creatinine Ratio 22.0, CBC w Diff NO MAN DIFF REQ, RBC 3.91 L, MCV 93.9, MCH 30.5, MCHC 32.5 L, RDW 14.6 H, MPV 7.4, Gran % 69.2, Lymphocytes % 19.6 L, Monocytes % 6.5, Eosinophils % 4.3, Basophils % 0.4, Absolute Granulocytes 7.1 H, Absolute Lymphocytes 2.0, Absolute Monocytes 0.7 H, Absolute Eosinophils 0.4, Absolute Basophils 0 Assessment/Plan Assessment: 72-year-old female with past medical history of COPD not on oxygen, current 1 pack per day smoker presenting this admission due to chest pain. Assessment: 1. Chest Pain 2. Community Acquired Pneumonia 3. Emphysema 4. Sinus Tachycardia - resolved Plan: * Continue oxygen supplementation to maintain target oxygen saturations >92%. Currently on 1L. Will attempt to wean her off. * If unable to today, will discharge her on home oxygen. * Continue Amoxicillin 500mg TID for a total course of 10-14 days. * Blood cultures showed pansensitive strep pnemo * She will need a repeat CT scan in 12 months for multiple pulmonary nodules. * She will need outpatient cardiology follow up with a possible stress test. She does have severe coronary calcifications. * Continue Aspirin and Statin * Echocardiogram - LVEF of 40% with global hypokinesis. Will increase to Lisinopril 5mg daily. * She has significant lower extremity edema. Was given one dose of PO Lasix 20mg today. She states her breathing improved significantly after it. * Will discharge her on Lasix 20mg.. * Diet: Regular * DVT Prophylaxis: SC Lovenox * Code Status: DNR/DNI Problem List: 1. Community acquired pneumonia Pain Ratin Pain Location: none Pain Goal: Remain pain free Pain Plan: none Tomorrow's Labs & Rationales: none Nela Whiting 01/02/18 1109: Attending MD Review Statement Attending Statement Attending MD Statement: examined this patient, discuss w/resident/PA/DRESSED POULTRY GRADER, agreed w/resident/PA/DRESSED POULTRY GRADER, discussed with family, reviewed EMR data (avail), discussed with nursing, discussed with case mgmt, reviewed images, amended to note Attending Assessment/Plan: Patient with clinical improvement. Patient is started on asa/statin/PO abx/ low dose coreg and low dose lisinopril. Plan is to titrate off oxygen and see if she can tolerate low dose lasix. Her lung reserves demonstrate moderate emphysema and her systolic heart failure is also contributing to her symptoms. She needs close o/p follow with cardiology for cardiac catherization and continue with medical management. Anticipate dc soon. medical management. Anticipate dc soon.
[2018-01-02 08:13] LABS: ABSOLUTE BASOPHIL COUNT 0 /CUMM (0.0-0.2); ABSOLUTE EOSINOPHIL COUNT 0.4 /CUMM (0.0-0.7); ABSOLUTE GRANULOCYTE CT 7.1 /CUMM (1.4-6.5); ABSOLUTE MONOCYTE COUNT 0.7 /CUMM (0.10-0.60); BASOPHIL % 0.4 % (0.0-2.0); EOSINOPHIL % 4.3 % (0-5); GRANULOCYTE % 69.2 % (42.2-75.2); HEMATOCRIT 36.7 % (37-47); MEAN CORPUSCULAR HGB 30.5 PG (27.0-31.0); MEAN CORPUSCULAR HGB CONC 32.5 G/DL (33.0-37.0); MEAN CORPUSCULAR VOLUME 93.9 FL (81.0-99.0); MEAN PLATELET VOLUME 7.4 FL (7.4-10.4); PLATELET COUNT 436 /CUMM (130-400); RBC DISTRIBUTION WIDTH 14.6 % (11.5-14.5); RED BLOOD CELL CT 3.91 /CUMM (4.20-5.40); WHITE BLOOD CELL COUNT 10.2 /CUMM (4.8-10.8)
[2018-01-02] MEDS ORDERED: AMOXICILLIN500 M2 PO ×3 (09:05→16:06)
[2018-01-02] MEDS ORDERED: LISINOPRIL2.5 M1 PO (09:22)
--- NOTE | 2018-01-02 10:57 | PN- Cardiology ---
Subjective Subjective: Feeling better. Shortness of breath is improving. No chest pain. No palpitations. No diaphoresis. No nausea or vomiting. Objective Vital Signs and I&Os Vital Signs Date Time Temp Pulse Resp B/P B/P Pulse O2 O2 Flow FiO2 Mean Ox Delivery Rate 01/02 1035 95 Nasal 1.0L Cannula 01/02 1003 78 104/60 01/02 0626 98.2 87 20 98/72 93 01/02 0000 Nasal 1.0L Cannula 01/01 2222 99.1 88 18 92/60 94 01/01 2158 88 92/60 01/01 1920 93 Nasal 1.0L Cannula 01/01 1600 Nasal 1.0L Cannula 01/01 1400 97.7 87 20 92/58 94 Intake & Output 01/02 1600 01/02 0800 01/02 0000 01/01 1600 01/01 0800 01/01 0000 Intake Total 751 808 1074 350 Output Total 250 Balance 120 120 800 350 Intake, Oral 670 761 2477 350 Number 1 Bowel Movements Output, Urine 250 Patient 142 lb 143 lb Weight Weight Bed scale Measurement Method Physical Exam: Gen: NAD HEENT: normal Lungs: Few scattered rales, normal resp. effort Heart: RRR, S1, S2, 1/6 systolic murmur Abdomen: Soft, nontender, no masses Extremities: 1+ edema Neuro: Alert and oriented x 3, cranial nerves intact Current Medications: Current Medications Sig/Gisell Start time Last Medication Dose Route Stop Time Status Admin Acetaminophen 650 MG Q6P PRN 12/26 2345 AC PO Albuterol Sulfate 3 ML BID 12/27 1034 AC 01/02 INH 1016 Albuterol Sulfate 2 PUF Q4 PRN 12/26 2345 AC 12/29 INH 0407 Amoxicillin 500 MG TID 12/30 0926 AC 01/02 PO 1003 Aspirin 81 MG DAILY 12/31 1449 AC 01/02 PO 1003 Atorvastatin Calcium 20 MG 1700 12/31 1700 AC 01/01 PO 1723 Carvedilol 3.125 MG BID 12/31 2100 DC 01/01 PO 0834 Enoxaparin Sodium 40 MG DAILY 12/27 0900 AC 01/02 SC 1003 Furosemide 20 MG ONCE ONE 01/02 0930 DC 01/02 PO 01/02 0931 1003 Hydrocodone Bitart/ 1 TAB Q6P PRN 12/26 2345 AC 01/01 Acetaminophen PO 2158 Ipratropium [place] 2.5 ML BID 12/27 1035 01/02 INH 1016 Lisinopril 2.5 MG DAILY 12/30 1421 01/02 PO 1003 Melatonin 5 MG AT BEDTIME 12/27 2130 01/01 PO 2158 Nicotine 21 MG 2100 12/27 2200 01/01 TOP 2158 Results Last 48 Hrs of Labs/Mics: Laboratory Tests 01/02/18 0722: Anion Gap 5, Estimated GFR > 60, BUN/Creatinine Ratio 22.0, CBC w Diff NO MAN DIFF REQ, RBC 3.91 L, MCV 93.9, MCH 30.5, MCHC 32.5 L, RDW 14.6 H, MPV 7.4, Gran % 69.2, Lymphocytes % 19.6 L, Monocytes % 6.5, Eosinophils % 4.3, Basophils % 0.4, Absolute Granulocytes 7.1 H, Absolute Lymphocytes 2.0, Absolute Monocytes 0.7 H, Absolute Eosinophils 0.4, Absolute Basophils 0 01/01/18 0655: Anion Gap 6, Estimated GFR > 60, BUN/Creatinine Ratio 20.0, CBC w Diff NO MAN DIFF REQ, RBC 4.08 L, MCV 93.7, MCH 30.5, MCHC 32.5 L, RDW 14.6 H, MPV 7.8, Gran % 68.9, Lymphocytes % 20.9, Monocytes % 6.7, Eosinophils % 3.1, Basophils % 0.4, Absolute Granulocytes 7.4 H, Absolute Lymphocytes 2.3, Absolute Monocytes 0.7 H, Absolute Eosinophils 0.3, Absolute Basophils 0 Assessment/Plan Assessment/Plan Assessment: 1. Chest pain syndrome 2. Sinus tachycardia with atrial ectopy and episodes of MAT 3. Community-acquired pneumonia with infiltrate, left upper lobe and lingula 4. Underlying COPD/emphysema 5. Coronary artery disease with severe coronary calcification noted on chest CT 6. Cardiomyopathy with ejection fraction of 35-40% Plan: * The patient is planned for possible discharge * Would increase lisinopril to 5 mg daily * Follow up with me in the office within 1 week. Continue telemetry? Yes
[2018-01-02] MEDS ORDERED: LISINOPRIL5 M1 PO ×2 (11:37→16:06)
[2018-01-02] MEDS ORDERED: FUROSEMIDE20 M1 PO ×2 (11:44→16:06)
[2018-01-02 14:00] VITALS: BP 130/70
[2018-01-02] MEDS ORDERED: SYMBICORT 80-10.2 GM INH ×2 (14:41→16:06)
[2018-01-02] MEDS ORDERED: VENTOLIN HFA18 GM INH ×2 (14:41→16:06)
[2018-01-02] MEDS ORDERED: ASPIRIN EC81 M1 PO (16:06)
[2018-01-02] MEDS ORDERED: ATORVASTATIN CA20 M1 PO (16:06)
== END 2018-01-02 16:30 | DRG 871 ==
LOC: ERH 17:23 → 1NO 19:22 → ERHI 19:22 → EDBEDREQTM 20:41 → EDBEDREQ 20:41 → ENRESERV 20:53 → ENTRNSPT 21:19 → EDTRNSPTSTS 21:24 → 2NB 21:32 → CMPTRNSPT 22:11 → 1NO 22:56 → ENPENDDIS 01-02 14:42 → ENTRNSPT 01-02 16:21 → EDTRNSPTSTS 01-02 16:28 → 1NO 01-02 16:30 → CMPTRNSPT 01-02 16:53
PROVIDERS: Dermatology; Emergency Medicine; Internal Medicine; Internal Medicine Hematology & Oncology
DX: A41.9 Sepsis, unspecified organism (principal); J13 Pneumonia due to Streptococcus pneumoniae; I42.9 Cardiomyopathy, unspecified; E87.2 Acidosis; E87.1 Hypo-osmolality and hyponatremia; E83.42 Hypomagnesemia; I50.22 Chronic systolic (congestive) heart failure; J44.0 Chronic obstructive pulmonary disease with (acute) lower respiratory infection; I47.1 Supraventricular tachycardia; J44.1 Chronic obstructive pulmonary disease with (acute) exacerbation; F17.210 Nicotine dependence, cigarettes, uncomplicated; Z88.0 Allergy status to penicillin; Z79.82 Long term (current) use of aspirin; Z79.51 Long term (current) use of inhaled steroids; Z90.49 Acquired absence of other specified parts of digestive tract; Z66 Do not resuscitate; E87.6 Hypokalemia; I25.10 Atherosclerotic heart disease of native coronary artery without angina pectoris
CPT/HCPCS: 1NP; 84133; 84300; 36415; 36592; 71045; 81001; 82436; 82570; 87040; 87070; 87147; 87449; 87450; 87804; 87804-59; 93005; 93010; 93306; 96374; 96375; 99291; J0456; J0696; J1100; J1650; J3490; J7040